=== PATIENT | male | born 1960 | race Caucasian/White ===

== ENCOUNTER 2021-08-26 08:14 | Inpatient (IN) | payer MEDICARE, MEDICAID ==
[~2021-08-26] VITALS: Ht 188 cm; Wt 61.0 kg
[~2021-08-26 08:14] MED LIST: LAMO25TA94 PO; LORA-269 PO; MIDO5TAB4 PO; NICO-687 TD; OLAN5TAB29 PO; PRED20TA PO; UMEC1DIS PO; VENL150C58 PO; ZOSYN 3.373.375 GM/5 IV
[2021-08-26] MEDS ORDERED: PRED10TA23 PO ×2 (10:44→14:55)
[2021-08-26] MEDS ORDERED: mag hydrox/Alum hydrox/simeth 30ml oral suspension PO PRN (12:20)
[2021-08-26] MEDS ORDERED: loperamide 2mg capsule PO PRN (12:20)
[2021-08-26] MEDS ORDERED: acetaminophen 325mg tablet PO PRN (12:20)
--- NOTE | 2021-08-26 14:32 | NUR ---
Admit note: [facility]150 for gravely disabled from the Ortho floor at 1300. PT is confused and disoriented . He does not know where he is, what year it is and continues to state "Lucio loves you, Lucio is beautiful." He cannot articulate where he lives or a viable plan for food, clothing and longterm. Pt has history COPD, bipolar, Schizophrenia. Addendum: 08/26/21 at 1531 by Horace Armstrong RN admission complete, but pt is very questionable historian. Responding a lot of the time with, "I think so"
[2021-08-26] MEDS ORDERED: MIDO5TAB4 PO (14:55)
[2021-08-26] MEDS ORDERED: OLAN5TAB5 PO (14:55)
[2021-08-26 15:02] VITALS: BP 96/65
[2021-08-26] MEDS ORDERED: LORazepam 1 MG tablet PO PRN ×2 (15:10)
[2021-08-26] MEDS ORDERED: LORazepam 0.5 MG tablet PO PRN (15:21)
[2021-08-26] MEDS: midodrine 5mg tablet PO SCH (16:54)
[2021-08-26] MEDS: acetaminophen 325mg tablet PO PRN (16:56)
[2021-08-26] MEDS: ipratropium/albuterol 3ml nebule IH SCH ×2 (17:20→20:20)
[2021-08-26 20:13] VITALS: BP 110/61
[2021-08-26] MEDS: ibuprofen tablet 400 MG TABLET PO PRN (20:31)
--- NOTE | 2021-08-27 00:49 | NUR ---
Nursing Progress Note: Legal hold:5150 Client on involuntary status for GD Report received from Himanshu JOSUE, with use of SBAR Why are they here: Pt admitted to [facility] on a 5150 for gravely disabled from the Ortho floor, pt is confused and disoriented . He does not know where he is, what year it is and continues to state "Lucio loves you, Lucio is beautiful." He cannot articulate where he lives or a viable plan for food, clothing and [facility]. Pt has history COPD, bipolar, Schizophrenia. Assessment What has happened this shift: Pt lying in bed at the start of the shift and remained there for the majority of the shift. Pt continues to not know what the date is, where he is, or why he is here. He will makes statements like "Lucio loves you!' You are so beautiful." He did complain of bilateral leg pain for which he had received Tylenol, but his pain remained unchanged. OCP contacted and order for Motrin 400 mg Q6 hrs for moderate pain was obtained. S/I, H/I:denies A/VH: denies Sleep:slept well through the night ADL's:independent Group attendance:N/A Were meds taken:no scheduled meds this shift Any med S/E: none noted or reported Mental Status Exam Appearance:slender man,hygiene and grooming poor Eye contact:good Behavior:pt mostly isolative in room, cooperative and pleasant with assessment Speech:normal rate, volume Mood:elevated Affect: animated Thought process:pt having issues with memory Thought Content: hyperreligious at times Cognition:impaired Insight:poor Judgment:poor PRN's used:Motrin ordered for leg pain as Tylenol ineffective
[2021-08-27] MEDS: ipratropium/albuterol 3ml nebule IH SCH ×4 (03:00→20:03)
--- NOTE | 2021-08-27 07:38 | NUR ---
Pt. c/o SOB, lung sounds auscultated and are clear bilaterally with diminished bases. Pt's oxygen saturation is 97% on RA. Respiratory paged for scheduled breathing treatment, and will continue to monitor.
[2021-08-27 07:41] VITALS: BP 134/78
[2021-08-27] MEDS: midodrine 5mg tablet PO SCH ×3 (08:45→17:28)
[2021-08-27] MEDS: OLANZapine 5mg rapidly disint. tablet PO SCH (08:45)
[2021-08-27] MEDS: prednisone 10mg tablet PO SCH (08:45)
[2021-08-27] MEDS: venlafaxine XR 75mg capsule (Q24H) PO SCH (08:45)
[2021-08-27] MEDS: lamoTRIgine 25mg tablet PO SCH (08:45)
[2021-08-27] MEDS: nicotine 21mg patch - 24 hr TD SCH (08:46)
--- NOTE | 2021-08-27 16:59 | NUR ---
Nursing Progress Note: Legal hold: 5150 Client on involuntary status for GD Report received from nurse with use of SBAR: Lashanda Gabriel RN Why are they here: Pt admitted to [facility] on a 5150 for gravely disabled from the Ortho floor, pt is confused and disoriented . He does not know where he is, what year it is and continues to state "Lucio loves you, Lucio is beautiful." He cannot articulate where he lives or a viable plan for food, clothing and penitentiary. Pt has history COPD, bipolar, Schizophrenia. Assessment What has happened this shift: Received pt. up pacing around the unit at the beginning of the shift, he was observed to be wandering into his peers rooms at intervals requiring redirection. Pt. also required direction in order to attend breakfast in the Group Room and afterwards 1:1 was completed at bedside. Pt. presents as cooperative, restless, impulsive, and appears hypomanic. Pt. is A&O X1 (to name only). When questioned regarding why he is here, pt. stated, "I"m here to be a real nice jaylin and good." Pt. reports A/HUGHES that tell him the same thing. He denies any S/I or H/I, however makes occasional delusional statements, "Lucio says not to pull strings." He presents with religiosity. Pt. reported a headache, and PRN Tylenol was administered with effectiveness. Pt. remained restless throughout the day AEB pacing, and PRN Ativan was administered with effectiveness. Pt. was observed to be impulsive at intervals and would walk up to others stating, "It's a beautiful day!" S/I, H/I: Pt. denies A/VH: Pt. reports A/HUGHES that tell him "To be real nice and good." Sleep: Sleep hours are 8.25, and pt. naps intermittently during the day ADL's: Requires some direction and encouragement Group attendance: Yes Were meds taken: Yes Any med S/E: None Mental Status Exam Appearance: Hair disheveled and wearing multiple layers of clothing Eye contact: Good Behavior: Cooperative, Restless, impulsive, and appears hypomanic Speech: Somewhat hyperverbal and high pitched Mood: Restless Affect: Animated Thought process: Disorganized Thought Content: A/HUGHES and religiosity Cognition: A&O X1 Insight: Poor Judgment: Poor Interventions PRN's used: Ativan and Tylenol Therapeutic interventions: Introduced self and established rapport, maintained a safe and supportive environment, ensured contract for safety, provided clear and simple instructions, attempted to orient to reality, clarified Ativan order, provided redirection as needed, and maintained Q 15nmin safety checks. Restraints/seclusion/emergency medication: N/A Justification of Continued Inpatient Treatment: Pt. requires interruption of current crisis, medication adjustments, and a safe and supportive environment.
[2021-08-27] MEDS: LORazepam 0.5 MG tablet PO PRN (19:11)
[2021-08-27 21:04] VITALS: BP 103/66
[2021-08-27 21:08] VITALS: BP 103/66
[2021-08-27] MEDS: ibuprofen tablet 400 MG TABLET PO PRN (23:20)
[2021-08-27] MEDS: traZODone 50mg tablet PO PRN (23:20)
--- NOTE | 2021-08-27 23:42 | NUR ---
Nursing Progress Note: Legal hold: 5150 Client on involuntary status for GD Report received from nurse with use of SBAR: Holger RN Why are they here: Pt admitted to [facility] on a 5150 for gravely disabled from the Ortho floor, pt is confused and disoriented . He does not know where he is, what year it is and continues to state "Lucio loves you, Lucio is beautiful." He cannot articulate where he lives or a viable plan for food, clothing and senior care. Pt has history COPD, bipolar, Schizophrenia. Assessment What has happened this shift: Pt lying in bed at the start of the shift. He continues to be hyperreligious, he reports hearing a voice telling him that "Lucio loves me." He was found laying in another patients bed two times this shift. The second time he did not believe that he was in the wrong room, I had to convince him to get up and return to his room. As I was escorting him back to his room he quickly grabbed me and kissed me on the neck. I told him that this was inappropriate behavior and he apologized. Pt also had an episode where he appeared to be having trouble breathing, was breathing rapidly, assessment was done by RT and lungs were clear, it appears pt was hyperventilating. Ativan was given as he appeared to be having anxiety, HR was elevated at 102. Pt was up and down after 10 pm so order for PRN Trazadone given to help him sleep and staff were watching the hallway to prevent patient from wandering into others rooms S/I, H/I: Pt. denies A/VH: Pt. reports A/HUGHES that tell him "Lucio loves me" Sleep: up and down after 10 pm so Trazadone order obtained and given ADL's: Requires some direction and encouragement Group attendance: N/A Were meds taken: Yes Any med S/E: None Mental Status Exam Appearance: Hair disheveled and wearing multiple layers of clothing Eye contact: fair, intense gaze at time Behavior: confused, wandering, anxious at time Speech: poverty of speech Mood: anxious Affect: blunted Thought process: Disorganized, confused Thought Content: A/HUGHES and religiosity Cognition: A&O X1 Insight: Poor Judgment: Poor Interventions PRN's used: Ativan, Trazadone, Motrin Therapeutic interventions: Introduced self and established rapport, maintained a safe and supportive environment, ensured contract for safety, provided clear and simple instructions, attempted to orient to reality, clarified Ativan order, provided redirection as needed, and maintained Q 15nmin safety checks. Restraints/seclusion/emergency medication: N/A Justification of Continued Inpatient Treatment: Pt. requires interruption of current crisis, medication adjustments, and a safe and supportive environment.
[2021-08-28] MEDS: traZODone 50mg tablet PO PRN ×2 (00:25→20:37)
[2021-08-28] MEDS: ipratropium/albuterol 3ml nebule IH SCH ×4 (02:13→20:08)
[2021-08-28 07:45] VITALS: BP 104/56
[2021-08-28] MEDS: midodrine 5mg tablet PO SCH ×3 (08:58→16:58)
[2021-08-28] MEDS: prednisone 10mg tablet PO SCH (08:58)
[2021-08-28] MEDS: venlafaxine XR 75mg capsule (Q24H) PO SCH (08:58)
[2021-08-28] MEDS: nicotine 21mg patch - 24 hr TD SCH (08:58)
[2021-08-28] MEDS: OLANZapine 5mg rapidly disint. tablet PO SCH (08:58)
[2021-08-28] MEDS: lamoTRIgine 25mg tablet PO SCH (08:58)
[2021-08-28] MEDS: acetaminophen 325mg tablet PO PRN (08:59)
--- NOTE | 2021-08-28 13:20 | NUR ---
Nursing Progress Note: Legal hold: 5150 Client on involuntary status for GD Report received from nurse with use of SBAR: Lashanda Gabriel RN Why are they here: Pt admitted to [facility] on a 5150 for gravely disabled from the Ortho floor, pt is confused and disoriented . He does not know where he is, what year it is and continues to state "Lucio loves you, Lucio is beautiful." He cannot articulate where he lives or a viable plan for food, clothing and [facility]. Pt has history COPD, bipolar, Schizophrenia. Assessment What has happened this shift: Received pt. sleeping in bed at the beginning of the shift, he awoke early and was observed to be sitting on the floor in the hallway. Pt. again required direction in order to attend breakfast in the Group Room and afterwards 1:1 was completed at bedside. Pt. continues to present as animated with religiosity, he states, "God is beautiful and good!" Pt. then began talking about [place] trees in a disorganized manner, but was able to be redirected back on topic. Pt. denies any depression, anxiety, or A/V/HUGHES , however appears to be internally preoccupied at times AEB observed to be whispering to himself. Pt. then begins singing, "Lucio loves me yes I know, for the Bible tells me so..." Pt. reported a headache, and PRN Tylenol was administered with effectiveness. Pt. remained up throughout the day interacting appropriately with others. He was not observed to be impulsively entering other peers rooms as was previously noted. Pt. continues to dress in multiple layers and did have another peers shirt on, but was compliant with taking this off and returning it when asked. S/I, H/I: Pt. denies A/VH: Pt. denies, however appears to be internally preoccupied at times AEB observed to be whispering to himself Sleep: Sleep hours are 6, and pt. naps intermittently during the day ADL's: Requires some direction and encouragement Group attendance: No Were meds taken: Yes Any med S/E: None Mental Status Exam Appearance: Hair disheveled and wearing multiple layers of clothing Eye contact: Good Behavior: Cooperative, Restless, impulsive, and appears hypomanic Speech: Somewhat hyperverbal and high pitched Mood: Restless Affect: Animated Thought process: Linear with disorganization Thought Content: A/HUGHES and religiosity Cognition: A&O X1 Insight: Poor Judgment: Poor Interventions PRN's used: Tylenol Therapeutic interventions: Maintained a safe and supportive environment, ensured contract for safety, provided clear and simple instructions, attempted to orient to reality, monitored behaviors and provided redirection as needed, and maintained Q 15nmin safety checks. Restraints/seclusion/emergency medication: N/A Justification of Continued Inpatient Treatment: Per Dr. Kelly, pt. continues to be GD and does not have a viable plan for discharge at this time. He continues to require a safe and supportive environment.
[2021-08-28] MEDS: LORazepam 0.5 MG tablet PO PRN (14:56)
--- NOTE | 2021-08-28 14:59 | NUR ---
Pt. wandered into another pt's room and was able to be redirected back to his own room. However, following this he became visibly anxious and and c/o SOB. PRN Ativan was administered and respiratory therapy was paged to administer pt's scheduled breathing treatment. Will continue to monitor pt. closely.
[2021-08-28 19:39] VITALS: BP 98/61
--- NOTE | 2021-08-29 01:08 | NUR ---
Nursing Progress Note: Legal hold: 5150 Client on involuntary status for GD Report received from nurse with use of SBAR: Elaine RN Why are they here: Pt admitted to [facility] on a 5150 for gravely disabled from the Ortho floor, pt is confused and disoriented . He does not know where he is, what year it is and continues to state "Lucio loves you, Lucio is beautiful." He cannot articulate where he lives or a viable plan for food, clothing and nursing home. Pt has history COPD, bipolar, Schizophrenia. Assessment What has happened this shift: Pt up on unit at start of shift. He watches TV, came to group room for snack, paces at times. Denies all MH symptoms. Pt is oriented to person only, unable to state where he is at. He did not wander into anyone else's room this shift. Pleasant and cooperative, smiles a lot verbalizes gratitude for care. S/I, H/I: Pt. denies A/VH: Pt. denies, no s/s of internally preoccupied. Sleep: asleep at this time, pt. naps intermittently during the day ADL's: Requires some direction and encouragement Group attendance: No Were meds taken: Yes Any med S/E: None Mental Status Exam Appearance: Hair disheveled Eye contact: Good Behavior: Cooperative, Speech: Soft spoken Mood: Restless Affect: Animated Thought process: confused Thought Content: getting needs met Cognition: A&O X1 Insight: Poor Judgment: Poor Interventions PRN's used: none Therapeutic interventions: Maintained a safe and supportive environment, ensured contract for safety, provided clear and simple instructions, attempted to orient to reality, monitored behaviors and provided redirection as needed, and maintained Q 15nmin safety checks. Restraints/seclusion/emergency medication: N/A Justification of Continued Inpatient Treatment: Per Dr. Kelly, pt. continues to be GD and does not have a viable plan for discharge at this time. He continues to require a safe and supportive environment.
[2021-08-29] MEDS: ipratropium/albuterol 3ml nebule IH SCH ×4 (02:41→20:28)
[2021-08-29 07:56] VITALS: BP 99/69
[2021-08-29] MEDS: lamoTRIgine 25mg tablet PO SCH (08:01)
[2021-08-29] MEDS: venlafaxine XR 75mg capsule (Q24H) PO SCH (08:01)
[2021-08-29] MEDS: prednisone 10mg tablet PO SCH (08:02)
[2021-08-29] MEDS: OLANZapine 5mg rapidly disint. tablet PO SCH (08:02)
[2021-08-29] MEDS: nicotine 21mg patch - 24 hr TD SCH (08:02)
[2021-08-29] MEDS: midodrine 5mg tablet PO SCH ×3 (08:02→15:35)
--- NOTE | 2021-08-29 09:32 | NUR ---
Pt. attended group today. Today's group was about the different communications styles i.e passive, aggressive and assertive. We discussed what the characteristics of each style was. We then discussed where they saw themselves at now and where they would like to be with their communication style. Pt engaged in group minimally. He sat and listened but was not able to share much insight into his own communication style. His thought content contained delusional content and his thought process was circumstantial. His demeanor was calm, compliant and pleasant. His mood was anxious with a restricted affect. He came in and out of the group, when he was in the group he would just listen. Nathaly Wiseman, LEAD MAN [employer]
[2021-08-29] MEDS: acetaminophen 325mg tablet PO PRN ×3 (09:34→22:10)
--- NOTE | 2021-08-29 17:53 | NUR ---
Nursing Progress Note: Legal hold: 5150 Client on involuntary status for GD Report received from LIAT Zamudio with use of SBAR Why are they here: Pt admitted to [facility] on a 5150 for gravely disabled from the Ortho floor, patient is confused and disoriented. He does not know where he is, what year it is and continues to state "Lucio loves you, Lucio is beautiful." He cannot articulate where he lives or a viable plan for food, clothing and detention. Pt has history COPD, bipolar, Schizophrenia. Assessment What has happened this shift: Received patient and entered his room at 0630. Patient laying quietly in his bed with very open wide eyes, and did not speak after introducing myself. Patient appears slightly anxious and possibly afraid. Patient was assisted to sit up on the side of the bed for his Patient Assessment and 1:1 Patient Interview. Patient speaks very softly and slowly. During the patient interview, he is confused and reports he is at [place], the year is 1968 and he does not know the month, and his /age. Patient reports he lives alone and states I dont know where to walk to and get my groceries. Patient was asked if he had someone to help him with his laundry and purchasing groceries, and he replied No, I dont know anybody. Between asking the patient questions, he would respond Lucio loves you. Lucio loves me. Dariel, God is good. and would continue repeating the above statements over and over. Patient was assisted from his bed to the Community Room for breakfast. Patient was very unsteady on his feet, but as he ambulated his gait improved. Patient informed God brought me here. Patient laid down in his bed after breakfast, laying in the dark. Patient reported My back hurts very bad. When asked to report his pain on a scale of 1-10, he reports he has Really bad pain down the back of both of my legs Patient was informed that he could go back to the Dining Room and color pictures, or attend Group Meeting at 1100, after snack. At approximately 1050, the patient was reminded of snack, and assisted with ambulation from his bed to the Community Room to pool hall inspector line for snack. Patient appeared calm after he was out of the room and listening to the Group Meeting in the back of the room. The patient did not participate. Patient continued throughout the day sitting in the dining room with his eyes wide open and appearing frightful and extremely apprehensive, and does not initiate getting up from the chair or his bed on his own. S/I, H/I: Denies A/VH: Denies Sleep: 8.25 hours ADL's: Patient requires full on prompting and direction to move anywhere from out of his bed for meals, snacks or the bathroom. Group attendance: Patient sat in the back of the Community Room and did not participate, but listened. Were meds taken: Yes, without hesitation. Any med S/E: None observed or reported. Mental Status Exam Appearance: Tall, extremely thin male with black/dye messy hair with a rubber band in the back of his head, dressed in a black shirt and jeans. Eye contact: Good Behavior: Cooperative Speech: Slowly and Softly Mood: Flat Affect: Constricted, Fixed Expression Thought process: Disorganized. Thought Content: Thought Blocking Prevents conversation other than a yes/no answer from the patient. Cognition: Confused. Year 1968. Does not know /age, Month, Time Insight: Poor Judgment: Poor Interventions PRN's used: Tylenol x2 Therapeutic interventions: Maintained a safe and supportive environment, ensured contract for safety, provided clear and simple instructions, attempted to orient to reality, monitored behaviors and provided redirection as needed, and maintained Q 15nmin safety checks. Restraints/seclusion/emergency medication: N/A Justification of Continued Inpatient Treatment: Per Dr. Kelly, pt. continues to be GD and does not have a viable plan for discharge at this time. He continues to require a safe and supportive environment.
--- NOTE | 2021-08-29 18:15 | NUR ---
Called to patient's room as pt had vomited and c/o rapid breathing. Vital signs HR 96, 97% on room air, BP 111/76. Patient informed to slow down and used purse lipped breathing. Patient was able to slow down his breathing after approximately 5 minutes. Patient received an Ativan at 1820, and was resting on his bed. Patient calming down at this time. Vital signs repeated. P.O. 98% on room air. BP 110/80 and HR 80. Patient reports he is feeling better. Respirations down from 38 to 18. Stayed with patient until 1840. Patient eating dinner at this time. Resting on his bed. Stable at this time. Report given to [facility] shift nurse Abdoul.
--- NOTE | 2021-08-29 18:17 | NUR ---
Pt vomited and has labored breathing. Paged respiratory
[2021-08-29] MEDS: LORazepam 0.5 MG tablet PO PRN ×2 (18:26→22:55)
--- NOTE | 2021-08-29 18:30 | NUR ---
Second page sent to respiratory therapy for breathing treatment. PRN Ativan administered. RN at the bedside
[2021-08-29 20:03] VITALS: BP 116/73
[2021-08-29] MEDS ORDERED: ondansetron 4mg rapidly disintigrating tab PO PRN (22:15)
--- NOTE | 2021-08-29 22:17 | NUR ---
Pt has had another episode of vomiting this shift, he is complaining of pain to lower abdominal area, when asked when his last bowel movement was he stated "I don't poop." Bowel sounds are hypoactive in all 4 quadrants. Ordered obtained for zofran and KUB to r/o bowel obstruction.
[2021-08-29] MEDS: traZODone 50mg tablet PO PRN (22:55)
--- NOTE | 2021-08-30 02:01 | NUR ---
Nursing Progress Note: Legal hold: 5150 Client on involuntary status for GD Report received from LIAT Drew with use of SBAR: Why are they here: Pt admitted to [facility] on a 5150 for gravely disabled from the Ortho floor, pt is confused and disoriented . He does not know where he is, what year it is and continues to state "Lucio loves you, Lucio is beautiful." He cannot articulate where he lives or a viable plan for food, clothing and [facility]. Pt has history COPD, bipolar, Schizophrenia. Assessment What has happened this shift: Patient seen at bedside. He is lying there with his hands behind his head. Patient did not want to get up tonight. He can't tell me anything about how he lives outside of here. He doesn't know where to go when discharged. Patient is cooperative and polite. Patient refused dinner tonight. He ended up getting more nausea with vomiting. He had not eaten dinner, so his vomit should have been Bile, but it had chunks of food in it. Bowel sounds almost absent. Received order for Zofran and KUB. Zofran was effective AEB no more vomiting. S/I, H/I: Denies A/VH: Denies, none observed. Sleep: See sleep assessment ADL's: Requires some direction and encouragement Group attendance: No Were meds taken: Yes Any med S/E: None Mental Status Exam Appearance: Hair disheveled, very thin man. Eye contact: Good Behavior: Cooperative, Speech: Soft spoken Mood: Restless Affect: Animated Thought process: confused Thought Content: getting needs met Cognition: A&O X1 Insight: Poor Judgment: Poor Interventions PRN's used: Zofran, Tylenol Therapeutic interventions: Maintained a safe and supportive environment, ensured contract for safety, provided clear and simple instructions, attempted to orient to reality, monitored behaviors and provided redirection as needed, and maintained Q 15nmin safety checks. Restraints/seclusion/emergency medication: N/A Justification of Continued Inpatient Treatment: Per Dr. Kelly, pt. continues to be GD and does not have a viable plan for discharge at this time. He continues to require a safe and supportive environment.
--- NOTE | 2021-08-30 07:16 | NUR ---
Initial: Pt admitted w/ schizophrenia per EMR. Previously, about 3 weeks ago, pt was seen by RD and met minimum criteria for malnutrition given muscle/fat wasting. However, pt was also on EN for a period of time and was eating moderately well after advancing to PO diet.Currently, Pt is eating avg 80% of meals and participates in some snacks per documentation. Overall, pt has been meeting est nutrient needs since last admit. LBM 08/29. No nutrition intervention implemented at this time, will continue to monitor. Recs: 1. Continue Regular diet as tolerated 2. Bowel care PRN 3. Weekly wts Addendum: 08/30/21 at [address] Amended: Links added.
[2021-08-30] MEDS: magnesium hydroxide 30ml (MOM) UD suspension PO PRN (07:51)
[2021-08-30] MEDS: venlafaxine XR 75mg capsule (Q24H) PO SCH (07:51)
[2021-08-30] MEDS: OLANZapine 5mg rapidly disint. tablet PO SCH (07:51)
[2021-08-30] MEDS: midodrine 5mg tablet PO SCH ×3 (07:51→17:41)
[2021-08-30] MEDS: prednisone 10mg tablet PO SCH (07:51)
[2021-08-30] MEDS: lamoTRIgine 25mg tablet PO SCH (07:51)
[2021-08-30] MEDS: nicotine 21mg patch - 24 hr TD SCH (07:52)
--- NOTE | 2021-08-30 07:53 | NUR ---
- Needs Assessment Presenting Issues: Pt's on vol status, question re d/c destination. Interventions: Clinician met w/pt @ bedside in an attempt to engage pt in pre-dcp activities and assess his needs outside of the hospital. Pt was not able to participate fully in this activity and was only able to nod his head when asked if he lives in an apartment. MSE is as follows: A/O- unable to assess as pt did not answer TP- unable to assess as pt only answered 1 question (close ended, explicit- "do you live in an apartment?") TC- unable to assess Mood- anxious, scared Affect- frozen stare BXS- cooperative- allows others to do things for & to him Insight- unable to assess Judgement- unable to assess Pt was non verbal for most of our session, he only nodded to 1 question and spent the entire session curled up staring @ clinician w/o any movements/gestures/sounds. Clinician consulted w/pt's assigned RN to gather info re pt's response to care. Per consultation pt is cooperative w/caregiving as he does not complain or resist care but he also does not participate in the daily care plan and just allows things to be done for/to him. A review of pt's records in [facility] indicates that hospital in had t/c with pt's landlord and documented that pt can rt home when he is d/c and landlord also reported that pt feels that he (pt) can no longer care for himself, current opened APS referral, connected to [facility] for PMD services & [facility] for psychiatric care. Pt receives SSDI, has Medicare A& B & Medi[employer] and has no payee/any identified POA. Dispo: It appears that pt requires additional support in the home (i.e a live-in or / caregiving support) so he can safely live where he's currently living. Plan: Clinician will f/u with APS and engage them in dcp/placement activities. Talita Sanchez LCSW Addendum: 08/30/21 at 0826 by Talita SOLIS Amended: Links added.
[2021-08-30 08:33] VITALS: BP 98/58
--- NOTE | 2021-08-30 09:00 | NUR ---
CM Presenting Issues: Pt's on Vol status, needs dcp support and dispo re d/c destination. Intervention: Clinician attempted to contact pt's landlord via phone, unable to leave as phone mssg indicated that he was not accepting phone calls at this time. Clinician had t/c w/[facility] per t/c pt is currently not open to [facility] and that pt can sign his application w/an 'X'. Plan: Clinician will continue to try and contact landlord, and provide referral for [facility] services. Talita Sanchez LCSW Addendum: 08/30/21 at 0908 by Talita Sanchez Amended: Links added.
[2021-08-30] MEDS: LORazepam 0.5 MG tablet PO PRN ×2 (09:01→20:57)
[2021-08-30] MEDS: ibuprofen tablet 400 MG TABLET PO PRN (09:03)
--- NOTE | 2021-08-30 09:41 | NUR ---
CM-Linkages Presenting Issues: Pt's on vol status needs dcp support as pt requires third green party assistance to safely live independently. Interventions: Clinician had t/c with [employer] and inquired about NMT (non-medical transportation services eligibility) as pt also has [employer]. Per t/c pt is eligible for NMT services for f/u appointments. Plan: Clinician will assist pt in scheduling his ride for post hospital f/u prior to d/c. Talita Sanchez LCSW Addendum: 08/30/21 at 0945 by Talita SOLIS Amended: Links added.
--- NOTE | 2021-08-30 13:32 | NUR ---
CM-Linkages Presenting Issues: Pt presents as frail and lacking insights into his current situation. Attending physician request support to facilitate pt's access to additional community-base support & services to mitigate risks of re-admission when pt d/c. Interventions: Clinician met w/pt and provided info about [facility] & [facility] [facility], pt signed consents for these referrals and [facility] applications for both of these services. Clinician asked pt if he is worried about himself if he were to return home, pt nodded, but when asked to elaborate pt was unable to do so. Referrals for [facility] & [facility] [facility] were faxed to the appropriate agencies. Plan: Per attending physician, pt needs to be seen by [facility] as oppose to [facility] given pt's acuity. Pt to d/c from [facility] to be transported to [facility] to establish outpatient services. Talita Sanchez LCSW Addendum: 08/30/21 at 1344 by Talita Sanchez SS Amended: Links added.
--- NOTE | 2021-08-30 13:53 | NUR ---
DCP Presenting Issues: Pt's on Vol status needs dcp support. Interventions: Clinician attempted to contact pt's landlord via phone to facilitate pt's d/c home, landlord's phone was not receiving any calls at this time. Plan: clinician will keep trying to reach landlord, will coordinate d/c w/[facility] & APS. Talita Sanchez LCSW Addendum: 08/30/21 at 1405 by Talita Sanchez SS Amended: Links added.
--- NOTE | 2021-08-30 19:06 | NUR ---
Nursing Progress Note: Legal hold: 5150 Client on involuntary status for GD Report received from [facility] with use of SBAR Why are they here: Pt admitted to [place] for Behavioral health on a 5150 for gravely disabled from the Ortho floor, patient is confused and disoriented. He does not know where he is, what year it is and continues to state "Lucio loves you, Lucio is beautiful." He cannot articulate where he lives or a viable plan for food, clothing and penitentiary. Pt has history COPD, bipolar, Schizophrenia. Assessment What has happened this shift: Received patient while he was sleeping in his bed. Patient easily aroused. Asked patient if he could sit up and put his legs over the side of his bed to take his medications then go to breakfast in the Community Room. Patient continued to lie on his back in the bed without moving. Asked patient if he heard what I had asked him to do, and he stated yes. Patient continued to lie on the bed. Again repeated the same task two more times with no results. Attempted to sit the patient upright and with his legs over the side of the bed, and there was a large amount of vomit covering his entire scrub shirt, all of his pillows and bedding were saturated in vomit. Asked patient when he had last vomited, and the patient stated I dont know, I think it was during the night. Patient also had a pair of black jeans that he had worn to bed. The pants and lower part of the bedding was saturated in urine. Patient urinated on the bed/floor when he was sat up alongside bed. Patient reports its 1981. Does not answer questions regarding his own name, , month, and location. Patient has a very flat affect, wide open eyes that does not track what is going on around him, and around the entire room. Patient stares straight ahead and is non-verbal most of the time, and when spoken to, does not respond to others or answer any questions. Patient was asked to get his food ready to eat by putting salt/pepper on the eggs and put syrup on his Khmer toast. Patient sat there for approximately 10 minutes in the Dining Room for breakfast this morning, and despite prompting on all of these tasks that were required of him to also do at home, patient did not do any of them. Patient just stared ahead. Spoke with Holger and asked him to add that patient needs tray set up for all meals and prompting to eat. Patients verbalization that was in response to any questions he was asked was God is good. Sure Sweetheart. Thank You. Patients condition was changed to a Voluntary Status, which I spoke with Mary about, and she said she would check into it. Informed Mary that at a very minimum, I had spoke to Dr. Kelly and told him that the patient should be looked at the be conserved, and not to return back to home because the level of care that he requires is care in a Retirement Facility at this time. Mary informed I will look at it. Also spoke directly to Talita and informed of lack of initiation, lack of initiative, and patient must be prompted for every single task in caring for himself such as toileting, eating, communication, ambulation, safety and personal care. Patient received an Ativan this morning with good relief. Patient will verbally speak to himself making reference to God and is delusional. Patient requires 1:1 care to complete all tasks, as well as 1:1 for safety at all times. S/I, H/I: Denies A/VH: Denies Sleep: 5.75 hours ADL's: Patient requires full on prompting and direction to move anywhere from out of his bed for meals, snacks or the bathroom. Group attendance: Patient did not attend the Group Meeting, instead laid down on his bed. Were meds taken: Yes, without hesitation. Any med S/E: None observed or reported. Mental Status Exam Appearance: Tall, extremely thin male with black/dye messy hair with a rubber band in the back of his head, dressed in a black shirt and jeans. Eye contact: Patient stares widely with open eyes, does not make eye contact when spoken to, and does not track his or others movement while in a room of peers. Behavior: Cooperative Speech: Slowly and Softly Mood: Flat Affect: Constricted, Fixed Expression Thought process: Delusional. Thought Content: Not able to evaluate. Cognition: Confused. Year 1980. Does not know his /AGE, Month, Time Insight: Poor Judgment: Poor Interventions PRN's used: Ativan x1, Motrin x1 Therapeutic interventions: Maintained a safe and supportive environment, ensured contract for safety, provided clear and simple instructions, attempted to orient to reality, monitored behaviors and provided redirection as needed, and maintained Q 15nmin safety checks. Restraints/seclusion/emergency medication: N/A Justification of Continued Inpatient Treatment: Per Dr. Kelly, pt. continues to be GD and does not have a viable plan for discharge at this time. He continues to require a safe and supportive environment.
[2021-08-30 20:23] VITALS: BP 98/61
[2021-08-30] MEDS: traZODone 50mg tablet PO PRN (20:57)
--- NOTE | 2021-08-31 01:09 | NUR ---
Nursing Progress Note: Legal hold: 5150 Client on involuntary status for GD Report received from [facility] with use of SBAR: Why are they here: Pt admitted to [place] for Behavioral health on a 5150 for gravely disabled from the Ortho floor, pt is confused and disoriented . He does not know where he is, what year it is and continues to state "Lucio loves you, Lucio is beautiful." He cannot articulate where he lives or a viable plan for food, clothing and residential. Pt has history COPD, bipolar, Schizophrenia. Assessment What has happened this shift: Patient seen in the group room. He has his dinner tray in front of him. most of his bread stick was eaten, but nothing else. Asked if he needed help...stares at me. Asked if he was still feeling sick today...more stare..."I'm scared." Assured him he was safe here, and nobody would harm him. More staring, now straight ahead, then starts talking to himself. Asked if there was anything I could do for him, "no sir." Patient made it back to his room, but just lay there for a while with eyes wide open. Provided him Ativan and Trazodone so he would sleep, "thank you good sir, thank you." Patient seems to need assist with every aspect of his life. Hope D/C plan addresses that. S/I, H/I: Denies A/VH: +AH, patient is very fearful and talks to himself. Sleep: See sleep assessment ADL's: Requires direction and encouragement Group attendance: No Were meds taken: Yes Any med S/E: None Mental Status Exam Appearance: Hair disheveled, very thin man. Eye contact: Good Behavior: Cooperative, comfused, scared, fearful Speech: Soft spoken Mood: Restless Affect: Afraid Thought process: confused Thought Content: getting needs met Cognition: A&O X1 Insight: Poor Judgment: Poor Interventions PRN's used: Ativan, Tylenol Therapeutic interventions: Maintained a safe and supportive environment, ensured contract for safety, provided clear and simple instructions, attempted to orient to reality, monitored behaviors and provided redirection as needed, and maintained Q 15nmin safety checks. Restraints/seclusion/emergency medication: N/A Justification of Continued Inpatient Treatment: Per Dr. Kelly, pt. continues to be GD and does not have a viable plan for discharge at this time. He continues to require a safe and supportive environment.
[2021-08-31 07:10] VITALS: BP 90/58
[2021-08-31 07:33] LABS: BASOPHILS % (AUTO) 0.6 % (0-1); EOSINOPHILS % (AUTO) 0.1 % (0-6); HEMATOCRIT 39.1 % (42.0-52.0); HEMOGLOBIN 12.7 g/dl (14.0-17.9); LYMPHOCYTES # (AUTO) 1.6 X10'3 (1.1-4.8); LYMPHOCYTES % (AUTO) 20.6 % (21-51); MEAN CORPUSCULAR HGB CONC 32.5 g/dL (33.0-36.5); MEAN CORPUSCULAR VOLUME 95.5 FL (78-98); MEAN PLATELET VOLUME 7.9 FL (7.4-10.4); MONOCYTES % (AUTO) 12.1 % (2-12); NEUTROPHILS # (AUTO) 5.2 X10'3 (1.8-7.7); NEUTROPHILS % (AUTO) 66.6 % (42-75); PLATELET COUNT 418 X10'3 (140-440); RED BLOOD COUNT 4.09 X10'6 (4.70-6.10); RED CELL DISTRIBUTION WIDTH 14.2 % (11.5-14.5); WHITE BLOOD COUNT 7.9 X10'3 (4.5-11.0)
[2021-08-31] MEDS: prednisone 10mg tablet PO SCH (07:43)
[2021-08-31] MEDS: midodrine 5mg tablet PO SCH ×3 (07:43→16:06)
[2021-08-31] MEDS: nicotine 21mg patch - 24 hr TD SCH (07:43)
[2021-08-31] MEDS: OLANZapine 5mg rapidly disint. tablet PO SCH (07:43)
[2021-08-31] MEDS: venlafaxine XR 75mg capsule (Q24H) PO SCH (07:43)
[2021-08-31] MEDS: lamoTRIgine 25mg tablet PO SCH (07:43)
[2021-08-31 07:53] LABS: ALANINE AMINOTRANSFERASE 47 U/L (12-78); ALBUMIN 3.3 G/DL (3.4-5.0); ALKALINE PHOSPHATASE 64 IU/L (46-116); ANION GAP 7 (8-16); ASPARTATE AMINO TRANSFERASE 19 U/L (10-37); BILIRUBIN,TOTAL 0.4 MG/DL (0.1-1.0); BLOOD UREA NITROGEN 23 MG/DL (7-18); BUN/CREATININE RATIO 29.9 (5.4-32.0); CALCIUM 8.6 MG/DL (8.5-10.1); CHLORIDE 106 MMOL/L (99-107); CREATININE 0.77 MG/DL (0.60-1.10); GLUCOSE 95 MG/DL (70-104); POTASSIUM 3.8 MMOL/L (3.5-5.1); SODIUM 144 MMOL/L (135-145); TOTAL CARBON DIOXIDE 30.7 MMOL/L (24-32); TOTAL PROTEIN 6.5 G/DL (6.4-8.2); eGFR > 90 ML/MIN
[2021-08-31 09:01] LABS: HIV ANTIBODY 1&2 RAPID NON-REACTIVE (Neg)
[2021-08-31] MEDS: LORazepam 0.5 MG tablet PO PRN ×2 (09:12→16:06)
[2021-08-31] MEDS: ibuprofen tablet 400 MG TABLET PO PRN ×2 (11:37→20:01)
--- NOTE | 2021-08-31 13:30 | NUR ---
Page sent to RT... [id number] Clif Catherine: patient needs PRN breathing treatment paula. thanks!
--- NOTE | 2021-08-31 14:58 | NUR ---
Nursing Progress Note: Legal hold: 5150 Client on involuntary status for GD Report received from [facility] Sin with use of SBAR: Why are they here: Pt admitted to [place] for Behavioral health on a 5150 for gravely disabled from the Ortho floor, pt is confused and disoriented . He does not know where he is, what year it is and continues to state "Lucio loves you, Lucio is beautiful." He cannot articulate where he lives or a viable plan for food, clothing and care home. Pt has history COPD, bipolar, Schizophrenia. Assessment What has happened this shift: Patient in room awake this AM. Repeating himself frequently. Patient was compliant with medications. Although the whole time he has a blank stare. Patient resting a couple times throughout the day but mostly staring blankly and repeating different phrases. Patient was up walking around 1330 and developed some shortness of breath with audible wheezes, RT paged and patient escorted back to room. O2 saturation 99% on RA. S/I, H/I: Denies A/VH: +AH, patient repeatedly chanting "voices" throughout the day. Sleep: See sleep assessment ADL's: Requires direction and encouragement Group attendance: No Were meds taken: Yes Any med S/E: None Mental Status Exam Appearance: Hair disheveled, very thin man. Eye contact: Good Behavior: Cooperative, confused, scared, fearful Speech: Soft spoken Mood: Restless Affect: Afraid Thought process: confused Thought Content: getting needs met Cognition: A&O X1 Insight: Poor Judgment: Poor Interventions PRN's used: Ativan, Motrin Therapeutic interventions: Maintained a safe and supportive environment, ensured contract for safety, provided clear and simple instructions, attempted to orient to reality, monitored behaviors and provided redirection as needed, and maintained Q 15nmin safety checks. Restraints/seclusion/emergency medication: N/A Justification of Continued Inpatient Treatment: Per Dr. Kelly, pt. continues to be GD and does not have a viable plan for discharge at this time. He continues to require a safe and supportive environment.
[2021-08-31 16:00] VITALS: BP 122/81
--- NOTE | 2021-08-31 18:33 | NUR ---
At start of shift [facility] notified me that Altaf was in the dining room yelling and cussing, and he was not redirectable. I approached him and tried to assess what was bothering him, he was sitting at the table staring at his tray, I asked him if he was done eating or still working on it, he stated "yes dear", when I tried to clarify which he meant and he just stated the same thing. I asked if we could go to his room and talk and he stated "yes dear", then walked with me and then stated "no talking, no talking!" I directed him to his room which he did, and I asked him what was bothering him, he stated "Fantasy fantasy!!" He is clearly agitated and appears to be responding to internal stimuli. Spoke with Dr Lashae SAHU and obtained order for Zyprexa 5mg now and Ativan now x1 and given ordered dose of Zyprexa 15 mg at bedtime. Notified pts nurse Dahlia.
[2021-08-31] MEDS ORDERED: LORazepam 1 MG tablet PO ONE (18:35)
[2021-08-31] MEDS ORDERED: OLANZapine 5mg rapidly disint. tablet PO ONE (18:35)
[2021-08-31] MEDS: traZODone 50mg tablet PO PRN ×2 (20:01→21:10)
[2021-08-31] MEDS: OLANZAPINE 5 MG TABLET PO SCH (20:01)
[2021-08-31 20:40] VITALS: BP 107/70
--- NOTE | 2021-08-31 23:39 | NUR ---
Nursing Progress Note Voluntary status Why are they here: Pt admitted to [place] for Behavioral health on a 5150 for gravely disabled from the Ortho floor, pt is confused and disoriented . He does not know where he is, what year it is and continues to state "Lucio loves you, Lucio is beautiful." He cannot articulate where he lives or a viable plan for food, clothing and longterm. Pt has history COPD, bipolar, Schizophrenia. What happened this shift: Pt is observed in the community room loudly cursing and yelling at no one in particular. Pt approached by staff and not making coherent sentences. PT brought to his room with his food tray to try to calm him down. called, 1 mg Ativan and 5 mg Zyprexa ordered and given. Pt kept repeating Donora, Donora, Donora, voices, voices. Pt took medication with some prompting. Pt given PRN trazodone x2 and PRN motrin for leg pain. PT has a flat, fixed affect with wide open eyes. His speech is clear, but he is repetitive and unable to respond to most questions. He takes medications well with applesauce, as he has trouble holding the med cup in his hands and focusing on trying to take them. Pt helped into bed and he is able to fall asleep. Justification of Continued Inpatient Treatment: Per Dr. Kelly, pt. continues to be GD and does not have a viable plan for discharge at this time. He continues to require a safe and supportive environment.
[2021-09-01 07:00] VITALS: BP 112/72
[2021-09-01 07:27] VITALS: BP 112/72
[2021-09-01] MEDS: nicotine 21mg patch - 24 hr TD SCH (08:08)
[2021-09-01] MEDS: midodrine 5mg tablet PO SCH ×3 (08:08→16:16)
[2021-09-01] MEDS: venlafaxine XR 75mg capsule (Q24H) PO SCH (08:08)
[2021-09-01] MEDS: lamoTRIgine 25mg tablet PO SCH (08:08)
[2021-09-01] MEDS: prednisone 10mg tablet PO SCH (08:08)
[2021-09-01] MEDS: LORazepam 0.5 MG tablet PO PRN ×2 (12:28→20:27)
--- NOTE | 2021-09-01 14:49 | NUR ---
Nursing Progress Note: Legal hold: 5150 Client on involuntary status for GD Report received from [facility] with use of SBAR: Why are they here: Pt admitted to [place] for Behavioral health on a 5150 for gravely disabled from the Ortho floor, pt is confused and disoriented . He does not know where he is, what year it is and continues to state "Lucio loves you, Lucio is beautiful." He cannot articulate where he lives or a viable plan for food, clothing and [facility] [facility]. Pt has history COPD, bipolar, Schizophrenia. Assessment Patient was sleeping comfortably a the beginning of this shift. When he woke for breakfast he was escorted to dining area where he was repeating different phrases and blankly staring. He was compliant with medications. Before lunch, patient urinated on himself. He was found removing his clothing in his room. Techs assisted him with cleaning up and put his clothes in the washer. Patient at lunch with no issues. S/I, H/I: Denies A/VH: +AH Sleep: See sleep assessment ADL's: Requires direction and encouragement Group attendance: Yes Were meds taken: Yes Any med S/E: None Mental Status Exam Appearance: Hair disheveled, very thin man. Eye contact: Good Behavior: Cooperative, confused, scared, fearful Speech: Soft spoken Mood: Restless Affect: Afraid Thought process: confused Thought Content: getting needs met Cognition: A&O X1 Insight: Poor Judgment: Poor Interventions PRN's used: Ativan Therapeutic interventions: Maintained a safe and supportive environment, ensured contract for safety, provided clear and simple instructions, attempted to orient to reality, monitored behaviors and provided redirection as needed, and maintained Q 15nmin safety checks. Restraints/seclusion/emergency medication: N/A Justification of Continued Inpatient Treatment: Per Dr. Kelly, pt. continues to be GD and does not have a viable plan for discharge at this time. He continues to require a safe and supportive environment.
[2021-09-01 15:27] LABS: HEP A AB, IGM Positive (Negative); HEPATITIS C ANTIBODY 0.1 s/co ratio (0.0-0.9)
--- NOTE | 2021-09-01 19:16 | NUR ---
INFECTION CONTROL NOTE advised staff about Hepatitis A precautions for Altaf. Contact isolation precautions, must wash hands thoroughly before leaving his room and interacting with the communal environment. Pt will need supervision and prompting to properly wash hands.
[2021-09-01 20:00] VITALS: BP 103/70
[2021-09-01] MEDS: OLANZAPINE 5 MG TABLET PO SCH (20:26)
[2021-09-01] MEDS: traZODone 50mg tablet PO PRN ×2 (20:27→21:23)
[2021-09-01] MEDS: ibuprofen tablet 400 MG TABLET PO PRN (20:33)
--- NOTE | 2021-09-01 22:52 | NUR ---
Nursing Progress Note Voluntary status Why are they here: Pt admitted to [place] for Behavioral health on a 5150 for gravely disabled from the Ortho floor, pt is confused and disoriented . He does not know where he is, what year it is and continues to state "Lucio loves you, Lucio is beautiful." He cannot articulate where he lives or a viable plan for food, clothing and penitentiary. Pt has history COPD, bipolar, Schizophrenia. What happened this shift: Pt is on contact precaution for Hep A. Pt's room wiped down with bleach wipes at beginning of shift. Pt stays in his room the entirety of the shift and eats his dinner at shift change. 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 He is pleasant with staff, calling them "sweetie" "beautiful" and being very thankful. Staff helps him change into clean scrubs and orellana and bull his hair. This seems to make him happy. Pt is medication compliant and utilizes prn motrin for "leg pain" and prn trazodone x2 for sleep with good effect. Justification of Continued Inpatient Treatment: Per Dr. Kelly, pt. continues to be GD and does not have a viable plan for discharge at this time. He continues to require a safe and supportive environment.
[2021-09-02 07:28] VITALS: BP 96/63
[2021-09-02] MEDS: lactose-reduced food (Ensure Enlive) - 237ml bottle PO SCH ×3 (08:12→18:04)
[2021-09-02] MEDS: lamoTRIgine 25mg tablet PO SCH (08:17)
[2021-09-02] MEDS: nicotine 21mg patch - 24 hr TD SCH (08:17)
[2021-09-02] MEDS: LORazepam 0.5 MG tablet PO PRN ×2 (08:17→17:22)
[2021-09-02] MEDS: prednisone 10mg tablet PO SCH (08:17)
[2021-09-02] MEDS: midodrine 5mg tablet PO SCH ×3 (08:17→16:00)
[2021-09-02] MEDS: venlafaxine XR 75mg capsule (Q24H) PO SCH (08:17)
--- NOTE | 2021-09-02 09:33 | NUR ---
Pt. observed to yelling aloud in his room responding to internal stimuli. Pt. yelled out, "F... you," and then "I'm sorry, I'm sorry!" He was administered PRN 0.5mg Ativan approximately an hour earlier for anxiety without desired effect. Dr. Bhardwaj notified via telephone and obtained order for Zyprexa 10mg daily, start now. Will continue to monitor closely.
[2021-09-02] MEDS: ibuprofen tablet 400 MG TABLET PO PRN (09:40)
[2021-09-02] MEDS: olanzapine 10mg tablet PO SCH (09:40)
--- NOTE | 2021-09-02 09:59 | NUR ---
HEPATITIS A: Per Dr. Doan, Hepatitis A is transferred by the fecal oral route. Pt. should be encouraged to preform frequent handwashing, should not share food or drinks, should have his own bathroom, and if having diarrhea requiring assistance from staff (staff to use Contact Precautions).
[2021-09-02] MEDS: ipratropium/albuterol 3ml nebule NEB PRN ×2 (10:33→19:42)
--- NOTE | 2021-09-02 10:44 | NUR ---
RT called to bedside to prn breathing tx. Upon RT arrival, pt is laying on his back in bed yelling random sentences, one of which earlier was "I can't breathe". Upon assessment, pt breath sounds are clear, apo2 is 94% on room air. Attempted to get pt to sit up and answer questions regarding taking the breathing tx and sob, however he is confused and does not answer questions appropriately. Attempted to give pt a tx via blow by, but pt kept turning his head. Tx stopped. No perceived sob. Will cont to monitor Addendum: 09/02/21 at 1047 by Carlota Hutson RT Amended: Links added.
[2021-09-02] MEDS ORDERED: LORazepam 1 MG tablet PO ONE ×2 (11:00→12:35)
--- NOTE | 2021-09-02 11:01 | NUR ---
Pt. continues to yell out responding to internal stimuli in an anxious manner. He yells, "Help, help," then continues on in a tangental and non-sensical manner. This was endorsed to Dr. Bhardwaj via telephone and obtained orders for Ativan 1mg now MRXI in 30 minutes if ineffective. Will continue to monitor.
--- NOTE | 2021-09-02 12:33 | NUR ---
Pt. continues to exhibit anxiety AEB observed to be responding aloud to internal stimuli while laying in bed in his room. Pt. shakes his bilateral legs restlessly while laying in bed, he states, "Shut up, shut up, shut up!" MRX1 dose of 1mg of Ativan to be administered per Dr. Bhardwaj.
--- NOTE | 2021-09-02 17:23 | NUR ---
Nursing Progress Note: Legal hold: Voluntary Client on voluntary status for GD Report received from nurse with use of SBAR: Lashanda Gabriel RN Why are they here: Pt admitted to [facility] for [facility] on a 5150 for gravely disabled from the Ortho floor, pt is confused and disoriented . He does not know where he is, what year it is and continues to state "Lucio loves you, Lucio is beautiful." He cannot articulate where he lives or a viable plan for food, clothing and snf. Pt has history COPD, bipolar, Schizophrenia. Assessment What has happened this shift: Received pt. sleeping in bed at the beginning of the shift. Pt. was awoken by staff for breakfast and eats meals in his room r/t recent diagnosis of hepatitis. Education and encouragement regarding handwashing was provided by this junior technical writer, however pt. is very disorganized and does not appear to understand. Pt. also has his own bathroom. Pt. presents as cooperative, fatigued, anxious, and impulsive. He stares intently at this junior technical writer with wide-eyes and states, "I hear voices, they keep yelling at me. F... you, shut up! I'm sorry, I'm sorry!" Pt. is able to eat independently, however requires prompting and encouragement. PRN Ativan was provided without effectiveness, and pt. continued to yell loudly responding to internal stimuli throughout the morning, Dr. Bhardwaj notified (see previous notes). Pt. also made random delusional statements throughout the morning, stating, "I can't walk, I can't breathe, I stabbed myself, and I have a computer in my brain." He remained in bed napping intermittently throughout much of the day. At approximately 1600 pt. was moved to a new one-person room. This caused him to become increasingly anxious and he began yelling out and attempting to enter the other rooms of his peers. Pt. required much redirection and encouragement from staff. He had to be escorted back to his room several times. Pt. appeared anxious, and was observed to he be hyperventilating, PRN Ativan was administered with effectiveness. S/I, H/I: Pt. denies A/VH: Pt. reports A/V/HUGHES and is observed to be responding aloud throughout the day Sleep: Sleep hours are 3.5, and pt. naps intermittently during the day ADL's: Requires direction and encouragement Group attendance: No Were meds taken: Yes Any med S/E: None Mental Status Exam Appearance: Hair disheveled and wearing multiple layers of clothing, Eye contact: Intense Behavior: Cooperative, fatigued, anxious, and impulsive Speech: Somewhat hyperverbal and high pitched Mood: Restless Affect: Animated Thought process: Tangental with disorganized Thought Content: A/HUGHES and religiosity Cognition: A&O X1 Insight: Poor Judgment: Poor Interventions PRN's used: Motrin and Ativan Therapeutic interventions: Maintained a safe and supportive environment, ensured contract for safety, provided clear and simple instructions, attempted to orient to reality, monitored behaviors and provided redirection as needed, provided education and encouragement regarding handwashing, obtained orders for PRN Zyprexa and Ativan as needed, and maintained Q 15nmin safety checks. Restraints/seclusion/emergency medication: N/A Justification of Continued Inpatient Treatment: Per Dr. Bhardwaj, pt. continues to be GD and does not have a viable plan for discharge at this time. He continues to require a safe and supportive environment and medication adjustments.
[2021-09-02] MEDS: OLANZAPINE 5 MG TABLET PO SCH (18:48)
[2021-09-02] MEDS: traZODone 50mg tablet PO PRN (18:48)
[2021-09-02 19:23] VITALS: BP 107/68
[2021-09-02] MEDS ORDERED: LORazepam 0.5 MG tablet PO PRN (19:40)
[2021-09-02] MEDS ORDERED: LORazepam 2 mg/ml vial IV ONE (19:50)
--- NOTE | 2021-09-02 22:23 | NUR ---
LOS NOTE: Client had a panic attack. His eye's were wide open and staring at unseen objects. Client made rapid, repetitive statements i.e. "Shut-up Altaf! Shut-up Altaf! Shut-up Altaf!" Client attempted to enter Providers office and was unable to be redirected. This RN and a NA escorted client to his room. Clients' gait is unsteady. He is cachetic and has generalized weakness. Client attempted to step over objects that were not there, further throwing him off balance. Client began to hyperventilate and continued to make repetitive statements. RT was called and noted the clients HR was 150 bpm. An EKG was obtained. RT was unable to to provide breathing treatment. Client was not wheezing. Dr. Bhardwaj was notified and ordered 2 mg Ativan IM for 9/10 anxiety. Client accepted IM Ativan. Client continued to be disorganized and made numerous attempts to walk and was prevented from falling by staff. Client is a very high fall risk and wanders aimlessly. Client is unable to find his room. RT reassessed client. His HR was 104 and he did not require a nebulizer.
--- NOTE | 2021-09-03 04:49 | NUR ---
Nursing Progress Note: Legal hold: Voluntary Client on voluntary status for GD Report received from nurse with use of SBAR: LIAT Downs Why are they here: Pt admitted to [facility] for [facility] on a 5150 for gravely disabled from the Ortho floor, pt is confused and disoriented . He does not know where he is, what year it is and continues to state "Lucio loves you, Lucio is beautiful." He cannot articulate where he lives or a viable plan for food, clothing and half-way. Pt has history COPD, bipolar, Schizophrenia. Assessment What has happened this shift: Patient was found standing in hallway appearing confused at beginning of shift. Patient had to be placed with a sitter due to him continuing to enter other peoples room and being a fall risk. Patient kept popping back up out of bed and trying to walk around unsteady. BRYCE Rowe approved giving patient his night medications early in order to calm him down. Patient also kept making delusional statements about tech stealing his gf and counting out loud. Patient kept getting more anxious and unable to keep in his room. Charge called doctor and got Ativan 2mg IM ordered. Patient was given medication and laid back down. Patient was observed having difficulty breathing and making wheezing sounds. Nurse paged respiratory to provide breathing treatment. Patient had an oxygen and pulse checked by respiratory and pulse was 143. Charge ordered an Ekg which was checked off by hospitalist. Tech was able to calm down patient and get him to go to sleep. Patient continued to have moments of sleep and awake periods. Patient was given repeat trazodone and assisted back to bed.
[2021-09-03 08:00] VITALS: BP 109/68
[2021-09-03] MEDS: venlafaxine XR 75mg capsule (Q24H) PO SCH (08:06)
[2021-09-03] MEDS: prednisone 10mg tablet PO SCH (08:06)
[2021-09-03] MEDS: lamoTRIgine 25mg tablet PO SCH (08:06)
[2021-09-03] MEDS: midodrine 5mg tablet PO SCH ×3 (08:06→16:00)
[2021-09-03] MEDS: olanzapine 10mg tablet PO SCH (08:06)
[2021-09-03] MEDS: nicotine 21mg patch - 24 hr TD SCH (08:06)
[2021-09-03] MEDS: LORazepam 1 MG tablet PO PRN ×2 (08:07→09:49)
[2021-09-03] MEDS: lactose-reduced food (Ensure Enlive) - 237ml bottle PO SCH ×3 (08:07→18:00)
[2021-09-03] MEDS: magnesium hydroxide 30ml (MOM) UD suspension PO PRN (09:49)
[2021-09-03] MEDS ORDERED: LORazepam 1 MG tablet PO ONE (13:05)
[2021-09-03] MEDS ORDERED: clozapine 25mg tablet PO ONE (13:05)
[2021-09-03 13:49] VITALS: BP 121/78
--- NOTE | 2021-09-03 13:50 | NUR ---
Pt. exhibited increased restlessness AEB wandering the unit, attempting to enter others' rooms, and periodically yelling out, "Tejinder!" He was unable to be redirected. Pt. also had an assisted drop down to his knees (no injuries were obtained) while standing in the hallway, he appears to be fatigued and fighting sleep. This was endorsed to Dr. Bhardwaj, who ordered a one time dose of Ativan 1mg and restarted pt. on Clozaril. Pt. was assisted back to his bed and medications were administered, will continue to monitor closely. Pt. remains on LOS for fall precautions. V/S were obtained and were WNL.
--- NOTE | 2021-09-03 17:17 | NUR ---
Nursing Progress Note: Legal hold: Voluntary Client on voluntary status for GD Report received from nurse with use of SBAR: Lashanda Gabriel RN Why are they here: Pt admitted to [facility] for [facility] on a 5150 for gravely disabled from the Ortho floor, pt is confused and disoriented . He does not know where he is, what year it is and continues to state "Lucio loves you, Lucio is beautiful." He cannot articulate where he lives or a viable plan for food, clothing and nursing home. Pt has history COPD, bipolar, Schizophrenia. Assessment What has happened this shift: Received pt. laying in bed at the beginning of the shift with his eyes wide open and reaching out towards staff. He remains on LOS for fall precautions and requires direction and minimal to moderate assistance from staff to perform ADLs, including eating. Pt. continues to eat meals in his room r/t recent diagnosis of hepatitis and confused state; he is unable to comprehend handwashing before attending meals. Pt. continues to present as cooperative, fatigued, anxious, and impulsive. He again stares intently at staff and speaks in a disorganized manner, and is indiscernible at times making little sense. Pt. exhibits anxiety and continues to respond aloud to internal stimuli, PRN Ativan was administered with little effectiveness. Pt. makes delusional statements and states, "My dad is Yadiel Villa." He exhibits what appears to be paranoia and restlessly runs around his room, taking off clothing, and making chocking or stabbing gestures towards himself. He yells out, "Help! Don't kill me!" Pt. was reassured of his safety on the unit and MRX1 dose of Ativan was administered with some effectiveness. Pt. also appears to be constipated AEB getting up to sit on the toilet at frequent intervals with no result, PRN MOM was administered. After third dose of Ativan (see previous note), pt. was able to sleep throughout the afternoon. S/I, H/I: Pt. denies A/VH: Pt. reports A/V/HUGHES and is observed to be responding aloud throughout the shift Sleep: Pt. was able to nap in the afternoon ADL's: Requires direction and minimal to moderate assistance from staff. Pt. remains on LOS for fall precautions Group attendance: N/A Were meds taken: Yes Any med S/E: None Mental Status Exam Appearance: Hair and clothing disheveled r/t laying in bed Eye contact: Intense Behavior: Cooperative, fatigued, anxious, and impulsive Speech: Disorganized, and is indiscernible at times making little sense Mood: Restless Affect: Animated Thought process: Tangental with disorganization Thought Content: A/V/HUGHES and delusions Cognition: A&O X1 Insight: Poor Judgment: Poor Interventions PRN's used: Ativan X3 Therapeutic interventions: Maintained a safe and supportive environment, ensured contract for safety, provided clear and simple instructions, attempted to orient to reality, monitored behaviors and provided redirection as needed, provided education and encouragement regarding handwashing, maintained fall precautions, and maintained LOS. Restraints/seclusion/emergency medication: N/A Justification of Continued Inpatient Treatment: Per Dr. Bhardwaj, pt. continues to be GD and does not have a viable plan for discharge at this time. He continues to require a safe and supportive environment and medication adjustments.
--- NOTE | 2021-09-03 17:59 | NUR ---
Scheduled 1600 dose of Midodrine 5mg held r/t pt. sleeping, endorsed to Dr. Bhardwaj.
[2021-09-03 20:00] VITALS: BP 104/70
[2021-09-03] MEDS: docusate sod 100mg capsule PO SCH (20:00)
[2021-09-03] MEDS: OLANZAPINE 5 MG TABLET PO SCH (21:00)
[2021-09-03] MEDS: clozapine 25mg tablet PO SCH (21:00)
--- NOTE | 2021-09-04 04:33 | NUR ---
Nursing Progress Note: Legal hold: Voluntary Client on voluntary status for GD Report received from nurse with use of SBAR: Himanshu RN Why are they here: Pt admitted to [facility] for [facility] on a 5150 for gravely disabled from the Ortho floor, pt is confused and disoriented . He does not know where he is, what year it is and continues to state "Lucio loves you, Lucio is beautiful." He cannot articulate where he lives or a viable plan for food, clothing and nursing home. Pt has history COPD, bipolar, Schizophrenia. Assessment What has happened this shift: Received pt on LOS and pt was in bed sleeping. Attempted to wake pt for snacks and hs medication. Pt mumbled something unintelligible and fell back to sleep. HS meds held per Dr. Bhardwaj. Pt remained sleeping all noc.
--- NOTE | 2021-09-04 07:34 | NUR ---
Reassessment: Currently on Regular diet w/ avg intake 50% of meals. Noted Ensure Enlive TID was ordered and pt has consumed mostly 100% of them. Also participates in some snacks per documentation. Overall pt meeting est nutrient needs at this time. Recommend decreasing frequency of ONS to BID. LBM 5/10 receiving routine and PRN bowel care. Will continue to monitor. Recs: 1. Continue Regular diet as tolerated 2. Ensure Enlive TID; decrease frequency to BID 3. Bowel care PRN 4. Weekly wts Addendum: 09/04/21 at [address] Amended: Links added.
[2021-09-04 08:00] VITALS: BP 94/67
[2021-09-04] MEDS ORDERED: clozapine 25mg tablet PO SCH (08:00)
[2021-09-04] MEDS: lactose-reduced food (Ensure Enlive) - 237ml bottle PO SCH ×3 (08:00→18:05)
[2021-09-04] MEDS: olanzapine 10mg tablet PO SCH (09:06)
[2021-09-04] MEDS: midodrine 5mg tablet PO SCH ×3 (09:06→16:53)
[2021-09-04] MEDS: docusate sod 100mg capsule PO SCH ×2 (09:07→21:07)
[2021-09-04] MEDS: venlafaxine XR 75mg capsule (Q24H) PO SCH (09:07)
[2021-09-04] MEDS: lamoTRIgine 25mg tablet PO SCH (09:07)
[2021-09-04] MEDS: prednisone 10mg tablet PO SCH (09:07)
[2021-09-04] MEDS: nicotine 21mg patch - 24 hr TD SCH (09:07)
[2021-09-04] MEDS: clozapine 25mg tablet PO SCH ×2 (09:29→21:07)
--- NOTE | 2021-09-04 11:37 | NUR ---
Pt's friend Pollo Knowles called regarding wanting to talk with pt's addiction social worker about possibly getting pt. into [facility]. This justowriter operator left a note for pt's addiction social worker with pt's permission.
[2021-09-04] MEDS: LORazepam 1 MG tablet PO PRN (15:41)
[2021-09-04] MEDS: acetaminophen 325mg tablet PO PRN (15:47)
--- NOTE | 2021-09-04 16:39 | NUR ---
Nursing Progress Note: Legal hold: Voluntary Client on voluntary status for GD Report received from nurse with use of SBAR: Lashanda Gabriel RN Why are they here: Pt admitted to [facility] for [facility] on a 5150 for gravely disabled from the Ortho floor, pt is confused and disoriented . He does not know where he is, what year it is and continues to state "Lucio loves you, Lucio is beautiful." He cannot articulate where he lives or a viable plan for food, clothing and residential. Pt has history COPD, bipolar, Schizophrenia. Assessment What has happened this shift: Received pt. sleeping in bed at the beginning of the shift he remains on LOS r/t fall precautions and requires direction and minimal to moderate assistance from staff to perform ADLs, including eating. Pt. continues to eat meals in his room r/t recent diagnosis of hepatitis and confused state; he continues to be unable to comprehend handwashing before attending meals. Pt. presents as animated with decreased anxiety, confusion, and paranoia this shift. He continues to speak in a disorganized manner, and is indiscernible at times making little sense, but is able to make most of his needs known. Pt. states animatedly, "I try to be good!" He continues to report A/HUGHES, and when further questioned regarding these states, "They tell me to be good." Pt. is again exhibiting religiosity. He denies any paranoid thoughts that others may want to hurt him. Pt's Clozaril was decreased to 25mg Q AM per Dr. Bhardwaj. At approximately 1530, pt. reported increased anxiety and again began to exhibit restlessness and audible wheezing. His lung sounds were auscultated, and continue to present as clear bilaterally. PRN Ativan was administered along with Tylenol for generalized pain with effectiveness. Pt. remained withdrawn in his room throughout the day and required less assistance with preforming ADLs, however continues to require frequent redirection. It was noted that he made his bed and cleaned up his room. S/I, H/I: Pt. denies A/VH: Pt. reports A/V/HUGHES and is observed to be responding aloud to internal stimuli at intervals Sleep: Sleep hours are 10.25, and pt. naps intermittently ADL's: Requires direction and minimal to moderate assistance from staff. Pt. remains on LOS for fall precautions Group attendance: N/A Were meds taken: Yes Any med S/E: None Mental Status Exam Appearance: Hair and clothing disheveled r/t laying in bed Eye contact: Intense Behavior: Cooperative, fatigued, anxious, and impulsive Speech: Disorganized, and is indiscernible at times making little sense Mood: Restless Affect: Animated Thought process: Tangental with disorganization Thought Content: A/V/HUGHES and delusions Cognition: A&O X1 Insight: Poor Judgment: Poor Interventions PRN's used: Ativan X1 and Tylenol Therapeutic interventions: Maintained a safe and supportive environment, ensured contract for safety, provided clear and simple instructions, attempted to orient to reality, monitored behaviors and provided redirection as needed, provided education and encouragement regarding handwashing, encouraged independent performance of ADLs and provided assistance as needed, maintained fall precautions, and maintained LOS. Restraints/seclusion/emergency medication: N/A Justification of Continued Inpatient Treatment: Per Dr. Bhardwaj, pt. continues to be GD and does not have a viable plan for discharge at this time. He continues to require a safe and supportive environment and medication adjustments.
[2021-09-04 20:03] VITALS: BP 152/118
[2021-09-04] MEDS: OLANZAPINE 5 MG TABLET PO SCH (21:06)
--- NOTE | 2021-09-05 01:13 | NUR ---
Nursing Progress Note: Legal hold: Voluntary Client on voluntary status for GD Report received from LIAT Downs with use of SBAR: Why are they here: Pt admitted to [facility] for [facility] health on a 5150 for gravely disabled from the Ortho floor, pt is confused and disoriented . He does not know where he is, what year it is and continues to state "Lucio loves you, Lucio is beautiful." He cannot articulate where he lives or a viable plan for food, clothing and detention. Pt has history COPD, bipolar, Schizophrenia. Assessment What has happened this shift: Patient lying on his bed at shift change. He has a sitter at bedside. Patient is talkative tonight, even though most of it unintelligible. He does clearly say, "you're a nice man, Lucio loves you." Patient is hyper-spiritism and multiple times says Lucio loves you." Patient stayed in his room all night, "cleaning myself." He was compliant with medications, and went to sleep soon after.
[2021-09-05 07:20] VITALS: BP_SYST 107; BP_SYST 86; BP_SYST 99; BP_DIAS 59; BP_DIAS 71; BP_DIAS 74
[2021-09-05 07:51] VITALS: BP 83/68
[2021-09-05] MEDS: docusate sod 100mg capsule PO SCH ×2 (07:52→20:20)
[2021-09-05] MEDS: venlafaxine XR 75mg capsule (Q24H) PO SCH (07:52)
[2021-09-05] MEDS: lamoTRIgine 25mg tablet PO SCH (07:52)
[2021-09-05] MEDS: prednisone 10mg tablet PO SCH (07:52)
[2021-09-05] MEDS: clozapine 25mg tablet PO SCH ×2 (07:53→20:20)
[2021-09-05] MEDS: olanzapine 10mg tablet PO SCH (07:53)
[2021-09-05] MEDS: midodrine 5mg tablet PO SCH ×3 (07:53→16:51)
[2021-09-05] MEDS: lactose-reduced food (Ensure Enlive) - 237ml bottle PO SCH ×3 (08:00→18:32)
[2021-09-05] MEDS: nicotine 21mg patch - 24 hr TD SCH (08:00)
--- NOTE | 2021-09-05 09:34 | NUR ---
CM-Pre-dcp Presenting Issues: Pt's capacity to attend to his ADLs have declined and pt's requesting to rt to [facility]. Pt had lived @ [facility] some time ago, placed by [facility]. Interventions: Clinician contacted [facility] @ [phone], per t/c house staff will have the Kitchen Steward/Stewardess call clinician to discuss pt going there upon d/c. Plan: Clinician will continue to monitor and f/u with community providers re dcp for pt. Talita Sanchez LCSW Addendum: 09/05/21 at 0937 by Talita Sanchez SS Amended: Links added.
--- NOTE | 2021-09-05 17:21 | NUR ---
Nursing Progress Note: Legal hold: Voluntary Client on voluntary status for GD Report received from nurse with use of SBAR: LIAT Zamudio Why are they here: Pt admitted to [facility] for [facility] health on a 5150 for gravely disabled from the Ortho floor, pt is confused and disoriented . He does not know where he is, what year it is and continues to state "Lucio loves you, Lucio is beautiful." He cannot articulate where he lives or a viable plan for food, clothing and custodial. Pt has history COPD, bipolar, Schizophrenia. Assessment What has happened this shift: Received pt on LOS and asleep. When pt awoke, he was more stable and not as sedated. evaluated and discontinued the LOS. Pt remains psychotic and is witnessed throughout the shift talking to himself. Little that he is saying makes sense with reality. Pt stated at one point, "It's ok to kill yourself, isn't it?" Pt though, denies S.I./H.I. Pt was not incontinent today and used the bathroom multiple times by himself. Pt took medications without issue. No agitation this shift. S/I, H/I: Pt. denies A/VH: Pt. reports A/V/HUGHES and is observed to be responding aloud throughout the shift Sleep: Pt. was able to nap in the afternoon ADL's: Requires direction and minimal to moderate assistance from staff. Pt. remains on LOS for fall precautions Group attendance: N/A Were meds taken: Yes Any med S/E: None Mental Status Exam Appearance: Hair and clothing disheveled r/t laying in bed Eye contact: Intense Behavior: Cooperative, fatigued, anxious, and impulsive Speech: Disorganized, and is indiscernible at times making little sense Mood: Restless Affect: Animated Thought process: Tangental with disorganization Thought Content: A/V/HUGHES and delusions Cognition: A&O X1 Insight: Poor Judgment: Poor Interventions PRN's used: Therapeutic interventions: Maintained a safe and supportive environment, ensured contract for safety, provided clear and simple instructions, attempted to orient to reality, monitored behaviors and provided redirection as needed, provided education and encouragement regarding handwashing, maintained fall precautions, and maintained LOS. Restraints/seclusion/emergency medication: N/A Justification of Continued Inpatient Treatment: Per Dr. Bhardwaj, pt. continues to be GD and does not have a viable plan for discharge at this time. He continues to require a safe and supportive environment and medication adjustments.
[2021-09-05 20:00] VITALS: BP 110/72
--- NOTE | 2021-09-06 00:48 | NUR ---
Nursing Progress Note: Legal hold: Voluntary Client on voluntary status for GD Report received from LIAT Downs with use of SBAR: Why are they here: Pt admitted to [facility] for Behavior[facility] health on a 5150 for gravely disabled from the Ortho floor, pt is confused and disoriented . He does not know where he is, what year it is and continues to state "Lucio loves you, Lucio is beautiful." He cannot articulate where he lives or a viable plan for food, clothing and long-term. Pt has history COPD, bipolar, Schizophrenia. Assessment What has happened this shift: Patient seen in the community room at shift change. He sits by himself at the back of the room, and talks to himself. He reports that he's still having hallucinations and they make him scared. Patient has been more talkative lately, but much of what he says does not make sense. He is not LOS anymore, and remains physically challenged, especially when ambulating. He is able to get to meals on his own with gentle nudging. Patient is compliant with medications. Olanzapine has been Dc'd. Patient went to bed after med pass, but woke after a couple hours. He states that had a nightmare and, "I'm scared." This nurse talked to him afterward, and reassured him that we are here to protect him. He eventually was able to get back to sleep. S/I, H/I: Pt. denies A/VH: Pt. reports A/V/HUGHES and is observed to be responding aloud throughout the shift Sleep: See sleep assessment ADL's: Requires direction and minimal to moderate assistance from staff. Pt. remains on LOS for fall precautions Group attendance: N/A Were meds taken: Yes Any med S/E: None reported or observed. Mental Status Exam Appearance: Hair and clothing disheveled r/t laying in bed Eye contact: Intense, paranoid Behavior: Cooperative, fatigued, anxious, and impulsive Speech: Disorganized, and is indiscernible at times making little sense. Mood: Restless Affect: Animated Thought process: Tangential with disorganization Thought Content: A/V/HUGHES and delusions Cognition: A&O X1 Insight: Poor Judgment: Poor Interventions PRN's used: Therapeutic interventions: Maintained a safe and supportive environment, ensured contract for safety, provided clear and simple instructions, attempted to orient to reality, monitored behaviors and provided redirection as needed, provided education and encouragement regarding handwashing, maintained fall precautions, and maintained LOS. Restraints/seclusion/emergency medication: N/A Justification of Continued Inpatient Treatment: Per Dr. Bhardwaj, pt. continues to be GD and does not have a viable plan for discharge at this time. He continues to require a safe and supportive environment and medication adjustments. 6+
[2021-09-06] MEDS: venlafaxine XR 75mg capsule (Q24H) PO SCH (07:43)
[2021-09-06] MEDS: midodrine 5mg tablet PO SCH ×3 (07:44→16:14)
[2021-09-06] MEDS: clozapine 25mg tablet PO SCH ×2 (07:44→21:27)
[2021-09-06] MEDS: lamoTRIgine 25mg tablet PO SCH (07:45)
[2021-09-06] MEDS: docusate sod 100mg capsule PO SCH ×2 (07:45→21:21)
[2021-09-06] MEDS: prednisone 10mg tablet PO SCH (07:45)
[2021-09-06] MEDS: nicotine 21mg patch - 24 hr TD SCH (07:47)
[2021-09-06 08:00] VITALS: BP 101/65
--- NOTE | 2021-09-06 09:48 | NUR ---
Pt. attended the afternoon group today.This group was an Art Expression group called Feelings Opposites where they expressed opposite emotions and did a dialogue with these emotions. Pt. did accomplish an art expression but did not do what was asked of him meaning he struggled to follow the instructions given. He appeared to enjoy the process of coloring in the circles and went with his own version of what he felt like coloring. When he was done with his piece he asked if it could be hung up on the wall with all the other artwork. He could not really explain what his thought process was behind his drawing, he does not show much insight into his own mental illness. His thought content appears to contain delusional content and his thought process veers into loose associations. Nathaly Wiseman, ELECTRONIC SCALE ASSEMBLER AND TESTER
[2021-09-06] MEDS ORDERED: lactose-reduced food (Ensure Enlive) - 237ml bottle PO SCH (13:00)
--- NOTE | 2021-09-06 18:01 | NUR ---
Nursing Progress Note: Legal hold: Voluntary Client on voluntary status for GD Report received from RN with use of SBAR Why are they here: Pt admitted to [place] for [facility]al health on a 5150 for gravely disabled from the Ortho floor, pt is confused and disoriented . He does not know where he is, what year it is and continues to state "Lucio loves you, Lucio is beautiful." He cannot articulate where he lives or a viable plan for food, clothing and nursing home. Pt has history COPD, bipolar, Schizophrenia. Assessment What has happened this shift: Received pt. in bed sleeping w/o distress at the beginning of the shift. Pt cooperative with vitals and took scheduled meds w/o issue. Pt ate well and was friendly with staff and others, although his speech is often disorganized and does not appear to be related to what is happening at the moment. Pt needs direction with some activities and remains isolative to his room for portions of the day. Pt continues to speak about being good and taoist themes. Pt keeping room neat and clean. He did not need breathing Tx this shift. S/I, H/I: Denies A/VH: Reports A/V/HUGHES and observed responding to internal stimuli Sleep: Napped ADL's: Requires direction and assistance from staff Group attendance: No Were meds taken: Yes Any med S/E: None Mental Status Exam Appearance: Mildly disheveled in own clothes Eye contact: Wide eyed and intense Behavior: Cooperative, fatigued, anxious Speech: Disorganized, not coherent at times Mood: Restless Affect: Animated Thought process: Tangential and disorganized Thought Content: R/T A/V/HUGHES and delusions Cognition: A&O X1 Insight: Poor Judgment: Poor Interventions PRN's used: Therapeutic interventions: Maintained a safe and supportive environment, ensured contract for safety, provided clear and simple instructions, attempted to orient to reality, monitored behaviors and provided redirection as needed, provided education and encouragement regarding handwashing, encouraged independent performance of ADLs and provided assistance as needed, maintained fall precautions, and maintained LOS. Restraints/seclusion/emergency medication: N/A Justification of Continued Inpatient Treatment: Per Dr. Bhardwaj, pt. continues to be GD and does not have a viable plan for discharge at this time. He continues to require a safe and supportive environment and medication adjustments.
[2021-09-06 19:00] VITALS: BP 114/55
[2021-09-06] MEDS: LORazepam 1 MG tablet PO PRN (21:20)
[2021-09-06] MEDS: traZODone 50mg tablet PO SCH (21:21)
--- NOTE | 2021-09-07 04:46 | NUR ---
Nursing Progress Note: Legal hold: Voluntary Client on voluntary status for GD Why are they here: Pt admitted to [facility] for Behavioral health on a 5150 for gravely disabled from the Ortho floor, pt is confused and disoriented . He does not know where he is, what year it is and continues to state "Lucio loves you, Lucio is beautiful." He cannot articulate where he lives or a viable plan for food, clothing and half-way. Pt has history COPD, bipolar, Schizophrenia. Assessment What has happened this shift: Patient observed laying in bed at the beginning of shift. Pleasant and cooperative with care; compliant with medication. PRN Ativan provided. He denies SI, HI, A/VH; no apparent delusions expressed this shift. Patient responding only with "yes ma'am" and "no ma'am." Appears confused and requires redirection sometimes. Patient participated in HS snack prior to bed; N/O for Trazodone started this shift with positive effect. Justification of Continued Inpatient Treatment: Per Dr. Bhardwaj, pt. continues to be GD and does not have a viable plan for discharge at this time. He continues to require a safe and supportive environment and medication adjustments.
[2021-09-07 07:43] VITALS: BP 101/79
[2021-09-07 07:45] LABS: BASOPHILS # (AUTO) 0.1 X10'3 (0-0.2); BASOPHILS % (AUTO) 0.9 % (0-1); EOSINOPHILS % (AUTO) 0.1 % (0-6); HEMATOCRIT 36.1 % (42.0-52.0); HEMOGLOBIN 12.2 g/dl (14.0-17.9); LYMPHOCYTES % (AUTO) 26.8 % (21-51); MEAN CORPUSCULAR HEMOGLOBIN 32.3 PG (27.0-31.0); MEAN CORPUSCULAR HGB CONC 33.8 g/dL (33.0-36.5); MEAN CORPUSCULAR VOLUME 95.6 FL (78-98); MEAN PLATELET VOLUME 8.1 FL (7.4-10.4); MONOCYTES # (AUTO) 0.7 X10'3 (0-0.9); MONOCYTES % (AUTO) 9.5 % (2-12); NEUTROPHILS # (AUTO) 4.6 X10'3 (1.8-7.7); NEUTROPHILS % (AUTO) 62.7 % (42-75); PLATELET COUNT 262 X10'3 (140-440); RED BLOOD COUNT 3.78 X10'6 (4.70-6.10); RED CELL DISTRIBUTION WIDTH 14.6 % (11.5-14.5); WHITE BLOOD COUNT 7.3 X10'3 (4.5-11.0)
[2021-09-07] MEDS: prednisone 10mg tablet PO SCH (07:45)
[2021-09-07] MEDS: lamoTRIgine 25mg tablet PO SCH (07:45)
[2021-09-07] MEDS: clozapine 25mg tablet PO SCH ×2 (07:46→20:01)
[2021-09-07] MEDS: midodrine 5mg tablet PO SCH ×3 (07:46→15:41)
[2021-09-07] MEDS: docusate sod 100mg capsule PO SCH ×2 (07:46→20:01)
[2021-09-07] MEDS: venlafaxine XR 75mg capsule (Q24H) PO SCH (07:46)
[2021-09-07] MEDS: nicotine 21mg patch - 24 hr TD SCH (07:47)
[2021-09-07 08:34] LABS: ALANINE AMINOTRANSFERASE 31 U/L (12-78); ALBUMIN 3.3 G/DL (3.4-5.0); ALBUMIN/GLOBULIN RATIO 1.2 (1.1-1.5); ALKALINE PHOSPHATASE 70 IU/L (46-116); ANION GAP 7 (8-16); ASPARTATE AMINO TRANSFERASE 22 U/L (10-37); BILIRUBIN,TOTAL 0.4 MG/DL (0.1-1.0); BLOOD UREA NITROGEN 20 MG/DL (7-18); BUN/CREATININE RATIO 23.8 (5.4-32.0); CALCIUM 8.3 MG/DL (8.5-10.1); CHLORIDE 107 MMOL/L (99-107); CREATININE 0.84 MG/DL (0.60-1.10); GLUCOSE 105 MG/DL (70-104); POTASSIUM 4.2 MMOL/L (3.5-5.1); SODIUM 142 MMOL/L (135-145); TOTAL CARBON DIOXIDE 27.9 MMOL/L (24-32); TOTAL PROTEIN 6.1 G/DL (6.4-8.2); eGFR > 90 ML/MIN
--- NOTE | 2021-09-07 10:43 | NUR ---
Pt. attended group today. Today we talked about the different types of unhealthy thinking and how to identify each one. Pt. also participated in a visualization technique at the end of the session. Pt engaged in the group minimally. He appeared to struggle to follow exactly what was going on in group, he would occasionally share thoughts that were unrelated to the topic. His demeanor was calm, compliant and pleasant to work with. His thoughts appeared to contain some delusional thoughts and his thought process was circumstantial. Nathaly Wiseman, INSTRUCTOR TRAINER CANINE SERVICE
--- NOTE | 2021-09-07 13:08 | NUR ---
Nursing Progress Note: Legal hold: Voluntary Client on voluntary status for GD Why are they here: Pt admitted to [place] for Behavioral health on a 5150 for gravely disabled from the Ortho floor, pt is confused and disoriented . He does not know where he is, what year it is and continues to state "Lucio loves you, Lucio is beautiful." He cannot articulate where he lives or a viable plan for food, clothing and fpc. Pt has history COPD, bipolar, Schizophrenia. Assessment What has happened this shift: Patient sleeping at the beginning of shift. Pleasant and cooperative with care; compliant with mediation. Denies SI, HI, A/VH; no apparent delusions expressed but responds minimally. Patient participates in meals and groups. Sits in the community room and greets staff each time they walk in. Justification of Continued Inpatient Treatment: Per Dr. Bhardwaj, pt. continues to be GD and does not have a viable plan for discharge at this time. He continues to require a safe and supportive environment and medication adjustments.
[2021-09-07] MEDS: traZODone 50mg tablet PO SCH ×2 (20:01→22:31)
[2021-09-07] MEDS: LORazepam 1 MG tablet PO PRN (22:28)
[2021-09-07] MEDS ORDERED: traZODone 50mg tablet PO ONE (22:35)
--- NOTE | 2021-09-08 04:49 | NUR ---
Nursing Progress Note: Legal hold: Voluntary Client on voluntary status for GD Report received from JOSE Wren with [facility] Why are they here: Pt admitted to [place] for Behavioral health on a 5150 for gravely disabled from the Ortho floor, pt is confused and disoriented . He does not know where he is, what year it is and continues to state "Lucio loves you, Lucio is beautiful." He cannot articulate where he lives or a viable plan for food, clothing and [facility]. Pt has history COPD, bipolar, Schizophrenia. Assessment What has happened this shift: Patient was observed smiling and laughing with staff and other patients at change of shift. Patient was later found sleeping in bed. Patient slept until snack time. Patient participated in snack and took all night medications Patient socialized with other patients and staff before going back to bed. Patient later got up becoming more and more anxious patient was given Ativan and trazodone to stop him from working himself up more. Patient was assisted back to his room and to bed.
--- NOTE | 2021-09-08 07:25 | NUR ---
Reassessment: Currently on Regular diet w/ mostly 100% intake of meals and ONS. Also participates in some snacks per documentation. Overall pt meeting est nutrient needs at this time. Recommend decreasing frequency of ONS to once daily vs d/c if PO intake of meals remains close to 100%. [facility] 09/04 w/ PRN bowel care available. Will continue to monitor. Recs: 1. Continue Regular diet as tolerated 2. Ensure Enlive TID; decrease frequency to Once daily 3. Bowel care PRN 4. Weekly wts Addendum: 09/08/21 at [address] Amended: Links added.
[2021-09-08 07:30] VITALS: BP 99/71
[2021-09-08] MEDS: prednisone 10mg tablet PO SCH (07:54)
[2021-09-08] MEDS: docusate sod 100mg capsule PO SCH ×2 (07:54→20:31)
[2021-09-08] MEDS: midodrine 5mg tablet PO SCH ×3 (07:54→16:34)
[2021-09-08] MEDS: venlafaxine XR 75mg capsule (Q24H) PO SCH (07:54)
[2021-09-08] MEDS: lamoTRIgine 25mg tablet PO SCH (07:54)
[2021-09-08] MEDS: nicotine 21mg patch - 24 hr TD SCH (08:00)
[2021-09-08] MEDS: clozapine 25mg tablet PO SCH ×2 (08:30→20:32)
[2021-09-08] MEDS: LORazepam 1 MG tablet PO PRN (10:31)
--- NOTE | 2021-09-08 15:12 | NUR ---
DCP Presenting Issues: Pt's at baseline and has verbalized that he can no longer live independently expressed desires to rt to [facility]. Interventions: [facility] SW will come to the hospital on 09/12 @ 11AM to assess pt for [facility] services. [facility] willing to assess pt for possible placement there. Clinician faxed referral for darrell [facility] to [facility]. Plan: Clinician will continue to engage [facility] in dcp activities. Talita Sanchez LCSW Addendum: 09/08/21 at 1516 by Talita Sanchez SS Amended: Links added.
--- NOTE | 2021-09-08 18:13 | NUR ---
Nursing Progress Note: Legal hold: Voluntary Client on voluntary status for GD Report received from nurse with use of SBAR: LIAT Sin Why are they here: Pt admitted to [place] for Behavioral health on a 5150 for gravely disabled from the Ortho floor, pt is confused and disoriented . He does not know where he is, what year it is and continues to state "Lucio loves you, Lucio is beautiful." He cannot articulate where he lives or a viable plan for food, clothing and intermediate. Pt has history COPD, bipolar, Schizophrenia. Assessment What has happened this shift: Received pt. sleeping in bed at start of shift. Pt. awoke and requesting coffee. Pt. took all medications and ate all meals in the community room. 1:1 done at bedside, pt. states, Im great brother, how are you?. Pt. denies all psych symptoms. Pt. states, I dont feel suicidal, I love life, life is a gift. Pt. makes bizarre requests, states, I need a urinal when asked if he was having difficulty using the toilet, pt. stated, No. Pt. states, Im hearing voices. Pt. requesting to play the Someecardsr. Pt. requesting clozaril, RN informed pt. that clozaril is scheduled in AM and DENY RN offered pt. an Ativan PRN and pt. received 1mg po with good effect. S/I, H/I: Denies A/VH: +AH Sleep: Sleep hours are 7, and pt. naps intermittently ADL's: Requires direction and minimal to moderate assistance from staff. Group attendance: Yes Were meds taken: Yes Any med S/E: Fatigue Mental Status Exam Appearance: Hair and clothing disheveled r/t laying in bed Eye contact: Intense Behavior: Cooperative, fatigued, anxious, and impulsive Speech: WNL Mood: Anxious Affect: Blunted Thought process: Tangential Thought Content: Play Cognition: A&O X1 Insight: Poor Judgment: Poor Interventions PRN's used: Ativan X1 Therapeutic interventions: Maintained a safe and supportive environment, ensured contract for safety, provided clear and simple instructions, attempted to orient to reality, monitored behaviors and provided redirection as needed, provided education and encouragement regarding handwashing, encouraged independent performance of ADLs and provided assistance as needed, maintained fall precautions, and maintained LOS. Restraints/seclusion/emergency medication: N/A Justification of Continued Inpatient Treatment: Per Dr. Bhardwaj, pt. continues to be GD and does not have a viable plan for discharge at this time. He continues to require a safe and supportive environment and medication adjustments.
[2021-09-08 20:29] VITALS: BP 113/72
[2021-09-08] MEDS: traZODone 50mg tablet PO SCH (20:30)
[2021-09-09] MEDS: ipratropium/albuterol 3ml nebule NEB PRN ×2 (02:20→12:34)
[2021-09-09] MEDS: clozapine 25mg tablet PO SCH ×3 (04:09→20:25)
--- NOTE | 2021-09-09 04:42 | NUR ---
Nursing Progress Note: Legal hold: Voluntary Client on voluntary status for GD Report received from Nurse with [facility] Why are they here: Pt admitted to [place] for Behavioral health on a 5150 for gravely disabled from the Ortho floor, pt is confused and disoriented. He does not know where he is, what year it is and continues to state "Lucio loves you, Lucio is beautiful." He cannot articulate where he lives or a viable plan for food, clothing and intermediate. Pt has history COPD, bipolar, Schizophrenia. Assessment What has happened this shift: Patient was observed pacing around unit and socializing with other patients. Patient continues to ask for the guitar playing for a short period and then brining it back. Patient did this through out the night. Patient got up to participate in snack time and talk to other patients. Patient took all night medications including prn trazodone to help him sleep. Patient slept for three hours before getting up and asking for the guitar and headphones repetitively.
[2021-09-09 08:00] VITALS: BP 91/60
[2021-09-09] MEDS: nicotine 21mg patch - 24 hr TD SCH (08:00)
--- NOTE | 2021-09-09 08:00 | NUR ---
Orthostatic vitals obtained per provider request: Supine: 103/64 HR 83 Sittin/71 HR 87 Standin/63 HR 92
[2021-09-09] MEDS: midodrine 5mg tablet PO SCH ×3 (08:19→16:23)
[2021-09-09] MEDS: lamoTRIgine 25mg tablet PO SCH (08:19)
[2021-09-09] MEDS: venlafaxine XR 75mg capsule (Q24H) PO SCH (08:20)
[2021-09-09] MEDS: prednisone 10mg tablet PO SCH (08:20)
[2021-09-09] MEDS: docusate sod 100mg capsule PO SCH ×2 (08:20→20:25)
[2021-09-09] MEDS: LORazepam 1 MG tablet PO PRN ×2 (13:19→20:24)
--- NOTE | 2021-09-09 17:09 | NUR ---
Nursing Progress Note: Legal hold: Voluntary Client on voluntary status for GD Report received from nurse with use of SBAR: LIAT Sin Why are they here: Pt admitted to [place] for Behavioral health on a 5150 for gravely disabled from the Ortho floor, pt is confused and disoriented . He does not know where he is, what year it is and continues to state "Lucio loves you, Lucio is beautiful." He cannot articulate where he lives or a viable plan for food, clothing and senior care. Pt has history COPD, bipolar, Schizophrenia. Assessment What has happened this shift: Received pt. sleeping in bed at start of shift. Pt. awoke and requesting coffee. Pt. took all medications and ate all meals in the community room. 1:1 done at bedside, pt. states, Im great brother, how are you?. Pt. denies all psych symptoms. When asked the date pt. replied, Is it [place]? My birthday is right after een, my grandparents loved to visit us. Pt. overheard telling another pt. that he hears voices. Pt. appears anxious and perseverates on getting a shower. When pt. told to wait for his turn pt. asks another staff member to get him in the shower. Pt. states repetitively, Im good, how are you good man Im clean I dont stink?. Pt. requested Clozaril. Pt. informed that Clozaril is scheduled only for AM and HS. RN offered pt. an Ativan 1mg po and pt. took with moderate effect. Pt. observed coloring on his hands and told not to do that, pt. states, I understand man. Pt. asks to play guitar throughout the day. S/I, H/I: Denies A/VH: +AH Sleep: Sleep hours are 7.5, and pt. naps intermittently ADL's: Requires direction and minimal to moderate assistance from staff. Pt. showered today. Group attendance: Yes Were meds taken: Yes Any med S/E: Fatigue Mental Status Exam Appearance: Hair and clothing disheveled r/t laying in bed Eye contact: Intense Behavior: Cooperative, fatigued, anxious, and impulsive Speech: WNL Mood: Anxious Affect: Blunted Thought process: Tangential, d/o, perseverative. Thought Content: Circumstantial. Cognition: A&O to self and place. Insight: Poor Judgment: Poor Interventions PRN's used: Ativan X1 Therapeutic interventions: Maintained a safe and supportive environment, ensured contract for safety, provided clear and simple instructions, attempted to orient to reality, monitored behaviors and provided redirection as needed, provided education and encouragement regarding handwashing, encouraged independent performance of ADLs and provided assistance as needed, maintained fall precautions, and maintained LOS. Restraints/seclusion/emergency medication: N/A Justification of Continued Inpatient Treatment: Per Dr. Bhardwaj, pt. continues to be GD and does not have a viable plan for discharge at this time. He continues to require a safe and supportive environment and medication adjustments.
[2021-09-09] MEDS: traZODone 50mg tablet PO SCH (20:24)
[2021-09-09 20:50] VITALS: BP 99/69
--- NOTE | 2021-09-10 01:21 | NUR ---
NURSING PROGRESS NOTE Problem : Pt admitted to [place] for Behavioral health on a 5150 for gravely disabled from the Ortho floor, pt is confused and disoriented. He does not know where he is, what year it is and continues to state "Lucio loves you, Lucio is beautiful." He cannot articulate where he lives or a viable plan for food, clothing and prison. Pt has history COPD, bipolar, Schizophrenia. Interventions : Maintained a safe and supportive environment, ensured contract for safety, provided clear and simple instructions, attempted to orient to reality, monitored behaviors and provided redirection as needed, encouraged regarding handwashing, encouraged independent performance of ADLs and provided assistance as needed, maintained fall precautions.PT utilizes prn Ativan, because he is having some pressured speech and making antsy movements Response : pt is wide- eyed and talkative. He asks to play the guitar and is seen socializing with peers. He has RN write rockstar on his wristband. He is animated and pleasant on interview. He takes his HS medications without issue. Ativan that was given was affective and pt able to fall asleep. Plan : pt. continues to be GD and does not have a viable plan for discharge at this time. He continues to require a safe and supportive environment and medication adjustments.
[2021-09-10] MEDS: ipratropium/albuterol 3ml nebule NEB PRN ×2 (04:20→20:43)
[2021-09-10] MEDS: LORazepam 1 MG tablet PO PRN ×4 (04:21→20:09)
[2021-09-10 08:00] VITALS: BP 100/62
[2021-09-10] MEDS: prednisone 10mg tablet PO SCH (08:20)
[2021-09-10] MEDS: venlafaxine XR 75mg capsule (Q24H) PO SCH (08:20)
[2021-09-10] MEDS: midodrine 5mg tablet PO SCH ×3 (08:20→16:01)
[2021-09-10] MEDS: clozapine 25mg tablet PO SCH ×2 (08:20→21:00)
[2021-09-10] MEDS: lamoTRIgine 25mg tablet PO SCH (08:20)
[2021-09-10] MEDS: docusate sod 100mg capsule PO SCH ×2 (08:20→20:10)
[2021-09-10] MEDS: nicotine 21mg patch - 24 hr TD SCH (08:21)
[2021-09-10] MEDS: ibuprofen tablet 400 MG TABLET PO PRN (13:13)
--- NOTE | 2021-09-10 16:04 | NUR ---
PRNs Administered: Ativan X2 and breathing tx for reported anxiety and audible wheezing Interventions Offered: Active listening and positive encouragement Response to Medication: Pt.reported and exhibited relief from anxiety and wheezes gone
--- NOTE | 2021-09-10 16:51 | NUR ---
Problem : Pt admitted to [place] for Behavioral health on a 5150 for gravely disabled from the Ortho floor, pt is confused and disoriented . He does not know where he is, what year it is and continues to state "Lucio loves you, Lucio is beautiful." He cannot articulate where he lives or a viable plan for food, clothing and senior care. Pt has history COPD, bipolar, Schizophrenia. Interventions : Received pt. awake sitting in the hallway at the beginning of the shift, he greeted this specification writer animatedly. Pt. continues to require education regarding handwashing before attending meals r/t previous diagnosis of hepatitis A, and he reports understanding. He attended breakfast in the Group Room and was able to complete ADLs independently with direction from staff. Pt. continues to speak in a disorganized manner and speaks of various things out of context, but is able to be redirected. He continues to report anxiety and appears visibly anxious at intervals AEB a wide eyed stare, restlessness, and audible wheezing. PRN Ativan and breathing treatments were administered with effectiveness and pt. is able to be reassured of his safety. Pt. denies any further A/V/HUGHES, and was not observed to be responding aloud to internal stimuli as previously noted. However, pt. makes occasional grandiose delusional statements such as, "I'm a famous rn stars, all the bands know me!" He also continues to exhibit religiosity. Response : Pt. remained up throughout the day and was observed to be listening to music, playing the guitar, and interacting appropriately with others. PRN Motrin was administered for bilateral knee pain with effectiveness. He continues to require direction at and positive encouragement. Plan : Per Dr. Kelly, pt. continues to require medication titration and a safe and supportive environment. He will discharge to [facility].
[2021-09-10 19:50] VITALS: BP 102/64
[2021-09-10] MEDS: traZODone 50mg tablet PO SCH (20:09)
--- NOTE | 2021-09-10 23:03 | NUR ---
NURSING PROGRESS NOTE Problem : Pt admitted to [place] for Behavioral health on a 5150 for gravely disabled from the Ortho floor, pt is confused and disoriented. He does not know where he is, what year it is and continues to state "Lucio loves you, Lucio is beautiful." He cannot articulate where he lives or a viable plan for food, clothing and [facility]. Pt has history COPD, bipolar, Schizophrenia. Interventions : Maintained a safe and supportive environment, ensured contract for safety, provided clear and simple instructions, attempted to orient to reality, monitored behaviors and provided redirection as needed, encouraged regarding handwashing, encouraged independent performance of ADLs and provided assistance as needed, maintained fall precautions.PT utilizes prn Ativan, because he is anxious and starting to wheeze. Response : Pt is excited when RN brings him blue and purple eyeshadow. PT states he wants to look like a rockstar. RN brushes and bull his hair and applies eye shadow. PT is jovial and polite with staff and peers. He makes direct eye contact and has a wide eyed look to him at all times. PT appears to be anxious around 1999, and is making a wheezing sound with his throat, 02 sats are 95%. RT is paged for a breathing tx, Ativan 1mg prn given. PT was given breathing tx with good effect. Plan : pt. continues to be GD and does not have a viable plan for discharge at this time. He continues to require a safe and supportive environment and medication adjustments.
[2021-09-11] MEDS: docusate sod 100mg capsule PO SCH ×2 (07:43→20:05)
[2021-09-11] MEDS: predniSONE 5mg tablet PO SCH (07:44)
[2021-09-11] MEDS: lamoTRIgine 25mg tablet PO SCH (07:44)
[2021-09-11] MEDS: venlafaxine XR 75mg capsule (Q24H) PO SCH (07:44)
[2021-09-11] MEDS: clozapine 25mg tablet PO SCH ×2 (07:44→20:06)
[2021-09-11] MEDS: midodrine 5mg tablet PO SCH ×3 (07:44→17:05)
[2021-09-11] MEDS: nicotine 21mg patch - 24 hr TD SCH (07:45)
[2021-09-11 08:54] VITALS: BP 115/74
[2021-09-11] MEDS: LORazepam 1 MG tablet PO PRN (12:27)
--- NOTE | 2021-09-11 12:41 | NUR ---
PRNs Administered: Pt. was administered Ativan for anxiety AEB restlessness, wheezing, and wide eyed stare. Interventions Offered: This gag writer provided active listener and positive encouragement Response to Medication: Pt. thanked this gag writer for the medication and will continue to monitor closely for effectiveness.
--- NOTE | 2021-09-11 16:39 | NUR ---
Problem : Pt admitted to [place] for Behavioral health on a 5150 for gravely disabled from the Ortho floor, pt is confused and disoriented . He does not know where he is, what year it is and continues to state "Lucio loves you, Lucio is beautiful." He cannot articulate where he lives or a viable plan for food, clothing and assisted. Pt has history COPD, bipolar, Schizophrenia. Interventions : Received pt. again awake and sitting in the hallway at the beginning of the shift, he greeted this group underwriter animatedly. Pt. continues to require education regarding handwashing before attending meals r/t previous diagnosis of hepatitis A, and he reports understanding. He attended breakfast in the Group Room, and afterwards remained up interacting with others and playing [employer]ne[employer]. 1:1 was completed, and pt. continues to speak in a disorganized manner but is able to be redirected/ make his needs known. When questioned regarding A/V/HUGHES, pt. states, "I see friendly faces on the wall." Pt. again makes delusional statements throughout the shift, such as "Ignacio Lugo is still alive." He also continues to exhibit religiosity. Response : Pt. again remained up throughout the day and was observed to be interacting appropriately with others. He continues to require direction in order to complete ADLs at and positive encouragement. Pt. only presented with one episode of increased anxiety this shift and required PRN Ativan with effectiveness. Plan : Per BRYCE Rowe, pt. continues to require medication titration and a safe and supportive environment. He continues to be gravely disabled.
[2021-09-11 19:58] VITALS: BP 125/81
[2021-09-11] MEDS: traZODone 50mg tablet PO SCH (20:05)
[2021-09-11] MEDS: ipratropium/albuterol 3ml nebule NEB PRN (20:12)
--- NOTE | 2021-09-12 01:57 | NUR ---
NURSING PROGRESS NOTE Problem : Pt admitted to [place] for Behavioral health on a 5150 for gravely disabled from the Ortho floor, pt is confused and disoriented. He does not know where he is, what year it is and continues to state "Lucio loves you, Lucio is beautiful." He cannot articulate where he lives or a viable plan for food, clothing and care home. Pt has history COPD, bipolar, Schizophrenia. Interventions : Maintained a safe and supportive environment, ensured contract for safety, provided clear and simple instructions, attempted to orient to reality, monitored behaviors and provided redirection as needed, encouraged regarding handwashing, encouraged independent performance of ADLs and provided assistance as needed, maintained fall precautions.PT utilizes prn Ativan, because he is anxious and starting to wheeze. Response : Patient was sitting in the group room for 1:1. "Hi there, my good man" seems to be how he greets most people. Patient has had his hair cut, and it is not a good look. He talks about his guitar playing today, and is sad that the strings are broke. "They tried to fix it, but they kept breaking." The patient is calmer and less anxious than previous encounters. "The mirror in my room is like a fun-house mirror. It makes me look distorted." Patient laughed at himself. Before HS med pass patient starts wheezing, so respiratory was called and a breathing treatment was effective at making him breathe better. Plan : pt. continues to be GD and does not have a viable plan for discharge at this time. He continues to require a safe and supportive environment and medication adjustments.
[2021-09-12] MEDS: docusate sod 100mg capsule PO SCH ×2 (07:32→20:07)
[2021-09-12] MEDS: lamoTRIgine 25mg tablet PO SCH (07:32)
[2021-09-12] MEDS: predniSONE 5mg tablet PO SCH (07:32)
[2021-09-12] MEDS: venlafaxine XR 75mg capsule (Q24H) PO SCH (07:32)
[2021-09-12] MEDS: clozapine 25mg tablet PO SCH ×2 (07:32→20:06)
[2021-09-12] MEDS: nicotine 21mg patch - 24 hr TD SCH (07:32)
[2021-09-12] MEDS: midodrine 5mg tablet PO SCH ×3 (07:32→16:00)
[2021-09-12 08:00] VITALS: BP 121/76
[2021-09-12] MEDS ORDERED: tuberculin, purif. prot. deriv. 5 units/0.1ml ID ONE (08:25)
[2021-09-12] MEDS: ipratropium/albuterol 3ml nebule NEB PRN (08:41)
--- NOTE | 2021-09-12 10:06 | NUR ---
Pt. attended group today. Todays group was about the difference between Growth Mindset vs. Fixed Mindset. We learned about the differences and then discussed what aspect of developing a growth mindset they wanted to work on. Pt. engaged in the group well. His demeanor was calm, compliant and pleasant to work with. His thought content and thought process appeared a bit disorganized. His thought content may contain delusional content. He seemed to enjoy the socialization in the group setting. He shared in the group but would veer into loose associations. Nathaly Wiseman, SHANK INSPECTOR
--- NOTE | 2021-09-12 17:32 | NUR ---
RN Nursing Note: Altaf Catherine Problem : Pt admitted to [facility] for Behavioral health on a 5150 for gravely disabled from the Ortho floor, pt is confused and disoriented . He does not know where he is, what year it is and continues to state "Lucio loves you, Lucio is beautiful." He cannot articulate where he lives or a viable plan for food, clothing and correction. Pt has history COPD, bipolar, Schizophrenia. Interventions : Patient was awake at change of shift and in his room. Patient is very friendly to staff and peers. Patient does not appear to have insight to his situation. Patient had a elementary school social worker from [facility] evaluate patient for hours once he gets discharged. Patient does not have a d/c destination as of yet. Patient's best friend wants him to go to [facility] as his best friend lives there too. Response : Patient in the group room and social with peers. Patient did get a PPD on his left arm today for potential placement. Plan : Per BRYCE Rowe, pt. continues to require medication titration and a safe and supportive environment. He continues to be gravely disabled.
[2021-09-12] MEDS: traZODone 50mg tablet PO SCH (20:07)
[2021-09-12 20:35] VITALS: BP 115/69
--- NOTE | 2021-09-13 01:13 | NUR ---
NURSING PROGRESS NOTE: Problem : Pt admitted to [facility] for Behavioral health on a 5150 for gravely disabled from the Ortho floor, pt is confused and disoriented. He does not know where he is, what year it is and continues to state "Lucio loves you, Lucio is beautiful." He cannot articulate where he lives or a viable plan for food, clothing and [place] [facility]. Pt has history COPD, bipolar, Schizophrenia. Interventions : Maintained a safe and supportive environment, ensured contract for safety, provided clear and simple instructions, attempted to orient to reality, monitored behaviors and provided redirection as needed, encouraged handwashing r/t hx of hepatitis A, encouraged independent performance of ADLs and provided assistance as needed, maintained fall precautions. Response : Patient seen at bedside for assessment. "I got scared today." Asked what scared him. "The voices, they keep telling me I'm bad and I'm gonna get beat up. I don't fight, so they scare me." Patient re-oriented to reality that they are not real. "I know, but they still scare me." Reminded patient to wash hands often. "Oh yes, I wash them all the time now." When patient arrived on the unit, he was in poor physical health with unsteady gait. He has responded well to treatment aeb stronger gait and more independent with ADLs. He continues to be compliant with medications. Trazodone administered for good sleep hygiene. Plan : Pt. continues to be GD and does not have a viable plan for discharge at this time. He continues to require a safe and supportive environment and medication adjustments.
--- NOTE | 2021-09-13 07:41 | NUR ---
Reassessment: Currently on Regular/[facility] soft diet w/ mostly 100% intake of meals meeting est nutrient needs at this time. ONS was appropriately discontinued as pt is meeting needs through meals alone. Noted frequent wt discrepancy, previously going between 57kg and 75kg, now 60kg, unsure of accuracy. LBM 09/12 receiving routine colace. Will continue to monitor. Recs: 1. Continue Regular diet as tolerated 2. Bowel care PRN 3. Weekly wts Addendum: 09/13/21 at [address] Amended: Links added.
[2021-09-13] MEDS: nicotine 21mg patch - 24 hr TD SCH (07:58)
[2021-09-13] MEDS: venlafaxine XR 75mg capsule (Q24H) PO SCH (07:59)
[2021-09-13] MEDS: docusate sod 100mg capsule PO SCH ×2 (07:59→20:03)
[2021-09-13] MEDS: midodrine 5mg tablet PO SCH ×3 (07:59→16:55)
[2021-09-13] MEDS: predniSONE 5mg tablet PO SCH (07:59)
[2021-09-13] MEDS: lamoTRIgine 25mg tablet PO SCH (07:59)
[2021-09-13] MEDS: clozapine 25mg tablet PO SCH ×2 (07:59→20:03)
--- NOTE | 2021-09-13 08:55 | NUR ---
DCP Presenting Issues: Pt's on VOL status pending a safe dcp. [facility] had referred pt to Hollie Ar[facility]. Interventions: Clinician had t/c w/[facility] staff- Naya to f/u on referral for placement, per t/c, [facility] associate programmer is reviewing the packet and has been making calls to [facility] but no dispo yet. Plan: Clinician will continue to engage [facility] & [facility] in dcp activities. Talita Sanchez LCSW Addendum: 09/13/21 at 0856 by Talita SOLIS Amended: Links added.
--- NOTE | 2021-09-13 09:49 | NUR ---
Pt. attended both groups today. We first discussed putting together a Crisis Plan and each was given a sheet to do this with their supportive persons and resources written down. We then did an Art Expression activity where they had to identify what they wanted to hold onto in their life and let go of. They then did a visual representation with this. Pt. engaged well in both groups. His demeanor is consistently calm, compliant and pleasant to work with. He tends to talk to himself as others are talking which can be a bit distracting, when asked to stop talking while others are talking he was apologetic and amenable to redirection. He was able to stop his chatter for the rest of the group. His grasp of what is going on in the group or what the topic is about is limited. He follows along and attempt the activities but doesn't seem to completely understand what is happening. His thought content appears to contain some magical type thinking/delusional content. His thought process was a bit disorganized. He engaged well in the Art Expression and appears to enjoy creating art work. He appeared to grasp the concepts presented and appropriately shared the things he wanted to hold onto in the center [place], things such as his macrina and God. Outside of the [place] he cathy the ocean with shark in it and reported these are the things he wants to let go of. Ntahaly Wiseman LCSW
[2021-09-13 10:26] VITALS: BP 91/64
--- NOTE | 2021-09-13 15:03 | NUR ---
DCP/Placement Presenting Issues: Pt's a complicated d/c, as pt is currently unable to manage his ADLs w/o external prompting and support from a third alliance party. [facility]. Interventions: Clinician had t/c vandana/Reji/GABRIELE @ [facility] [phone] to f/u on referral, per t/c Reji will contact [facility] to coordinate an in-person interview w/pt to determine if pt is a good fit for [facility]. Plan: Clinician w/f/u with [facility] re pt's interview schedule w/[facility]. Talita Sanchez LCSW Addendum: 09/13/21 at 1516 by Talita Sanchez SS Amended: Links added.
--- NOTE | 2021-09-13 17:09 | NUR ---
RN Nursing Note: Altaf Catherine Problem : Pt admitted to [place] for Behavioral health on a 5150 for gravely disabled from the Ortho floor, pt is confused and disoriented . He does not know where he is, what year it is and continues to state "Lucio loves you, Lucio is beautiful." He cannot articulate where he lives or a viable plan for food, clothing and long term. Pt has history COPD, bipolar, Schizophrenia. Patient is gravely disabled. Interventions : Patient was re-oriented to place and time. Patient smiles and repeats. Patient has an interview for [facility] soon for possible placement. Response : Patient in the group room and social with peers. Patient is kind and social with staff and peers. Plan : Per BRYCE Rowe, pt. continues to require medication titration and a safe and supportive environment. He continues to be gravely disabled.
[2021-09-13 20:00] VITALS: BP 107/79
[2021-09-13] MEDS: traZODone 50mg tablet PO SCH (20:03)
--- NOTE | 2021-09-14 00:42 | NUR ---
NURSING PROGRESS NOTE: Problem : Pt admitted to [facility] for Behavioral health on a 5150 for gravely disabled from the Ortho floor, pt is confused and disoriented. He does not know where he is, what year it is and continues to state "Lucio loves you, Lucio is beautiful." He cannot articulate where he lives or a viable plan for food, clothing and assisted. Pt has history COPD, bipolar, Schizophrenia. Interventions : Maintained a safe and supportive environment, ensured contract for safety, provided clear and simple instructions, attempted to orient to reality, monitored behaviors and provided redirection as needed, encouraged handwashing r/t hx of hepatitis A, encouraged independent performance of ADLs and provided assistance as needed, maintained fall precautions. RESPONSE : Patient seen in the rec room. He has a favorite spot that he can usually be found. "How are my good man?" Asked him what he's thinking about while he sits there. "Oh, good things. I'm thinking about Leigh Saba." Asked what about her. "Oh, she's beautiful...Oh, and Jayne Espinoza too. Patient is upbeat and positive considering his state. He denies MH symptoms, but says he's still hearing voices that bother him. Patient is getting better at taking care of his ADLs, and physically he's walking more steadily and without assistance. Patient was provided Trazodone for sleep with positive results aeb sleeping all night. Plan : Pt. continues to be GD and does not have a viable plan for discharge at this time. He continues to require a safe and supportive environment and medication adjustments.
[2021-09-14] MEDS: ibuprofen tablet 400 MG TABLET PO PRN (06:00)
[2021-09-14 07:17] LABS: BASOPHILS % (AUTO) 0.4 % (0-1); EOSINOPHILS % (AUTO) 0.1 % (0-6); HEMOGLOBIN 12.3 g/dl (14.0-17.9); LYMPHOCYTES # (AUTO) 1.1 X10'3 (1.1-4.8); MEAN CORPUSCULAR HEMOGLOBIN 32.5 PG (27.0-31.0); MEAN CORPUSCULAR HGB CONC 33.3 g/dL (33.0-36.5); MEAN CORPUSCULAR VOLUME 97.7 FL (78-98); MEAN PLATELET VOLUME 8.3 FL (7.4-10.4); MONOCYTES # (AUTO) 0.6 X10'3 (0-0.9); MONOCYTES % (AUTO) 12.3 % (2-12); NEUTROPHILS # (AUTO) 3.5 X10'3 (1.8-7.7); NEUTROPHILS % (AUTO) 66.2 % (42-75); PLATELET COUNT 213 X10'3 (140-440); RED BLOOD COUNT 3.79 X10'6 (4.70-6.10); RED CELL DISTRIBUTION WIDTH 15.8 % (11.5-14.5); WHITE BLOOD COUNT 5.3 X10'3 (4.5-11.0)
[2021-09-14 08:00] VITALS: BP 98/65
[2021-09-14] MEDS: midodrine 5mg tablet PO SCH ×3 (08:08→16:09)
[2021-09-14] MEDS: lamoTRIgine 25mg tablet PO SCH (08:08)
[2021-09-14] MEDS: venlafaxine XR 75mg capsule (Q24H) PO SCH (08:08)
[2021-09-14] MEDS: clozapine 25mg tablet PO SCH ×2 (08:08→20:16)
[2021-09-14] MEDS: nicotine 21mg patch - 24 hr TD SCH (08:09)
[2021-09-14] MEDS: docusate sod 100mg capsule PO SCH ×2 (08:09→20:15)
[2021-09-14] MEDS: predniSONE 5mg tablet PO SCH (08:09)
--- NOTE | 2021-09-14 08:59 | NUR ---
Pt attended group today. We talked about Self Nurturing about how to curate spaces of nurture/self-care for themselves. We then did Vision board visualizing safe/nurture places and words. We read through a Personal Bill of Rights sheet, and they each discussed what rights they most identified with in order for them to develop their own bill of rights. Pt. engaged in the group appropriately though he does at times need to be redirected for talking when others are speaking. His demeanor is pleasant and he is amenable to redirection. He did not engage in writing down anything but was able to share that he enjoys music and nature. Nathaly Wiseman, DARELL
[2021-09-14] MEDS: ipratropium/albuterol 3ml nebule NEB PRN (11:56)
--- NOTE | 2021-09-14 13:46 | NUR ---
[facility] INTERVIEW Reji from [facility] called to request he come interview Altaf for [facility]. He reported he will meet with Altaf tomorrow at 10 AM. JAMES Delvalle
--- NOTE | 2021-09-14 17:12 | NUR ---
Nursing Note: Altaf Problem: Pt admitted to [place] for Behavioral health on a 5150 for gravely disabled from the Ortho floor. Pt has history COPD, bipolar, Schizophrenia. Pt. presents as disoriented and disorganized often unable to stay on topic AEB typewriter tester discussing future discharge plans and pt. states your beautiful, God loves you. Pt. c/o SOB with evidence accessory muscle use. Lab work shows deficient Hgb, RBC; provider notified. Interventions: Respiratory paged for PRN breathing treatment; effective. Pt. continues to be re oriented. Patient has pending interview with [facility] today re placement. Encouraged participation in group, and typewriter tester continues to provide pt. with a safe and therapeutic environment, clear communication, active listening and positive encouragement Response: Patient attended group, OOB and socializing with peers, and is friendly and compliant with staff. Plan: Per BRYCE Rowe, pt. continues to require medication titration and a safe and supportive environment. He continues to be gravely disabled.
--- NOTE | 2021-09-14 17:16 | NUR ---
PPD read with 0mm negative results Addendum: 09/14/21 at 1716 by Gwen Schafer RN Amended: Links added.
[2021-09-14 20:00] VITALS: BP 101/68
[2021-09-14] MEDS: traZODone 50mg tablet PO SCH (20:15)
--- NOTE | 2021-09-15 00:33 | NUR ---
Nursing Note: Altaf Problem: Pt admitted to [facility] for Behavioral health on a 5150 for gravely disabled from the Ortho floor. Pt has history COPD, bipolar, Schizophrenia. Pt. presents as disoriented and disorganized often unable to stay on topic AEB magazine writer discussing future discharge plans and pt. states your beautiful, God loves you. Pt. c/o SOB with evidence accessory muscle use. Lab work shows deficient Hgb, RBC; provider notified. Interventions: Pt in community room watching TV with peers while doing some artwork. Pt is pleasant and cooperative with this RN, stating that Lucio loves you and you look beautiful today. 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 After snacks pt requested breathing treatment and kept asking for his medications. Re-assured pt that he already took his HS medications. Provided pt. with a safe and therapeutic environment, clear communication, active listening and positive encouragement. Response: Patient in community room with peer doing artwork, socializing with peers, and is friendly and compliant with staff. Plan: Per BRYCE Rowe, pt. continues to require medication titration and a safe and supportive environment. He continues to be gravely disabled.
[2021-09-15] MEDS: LORazepam 1 MG tablet PO PRN ×2 (06:37→16:20)
[2021-09-15] MEDS: ipratropium/albuterol 3ml nebule NEB PRN (07:34)
[2021-09-15 08:00] VITALS: BP 102/70
[2021-09-15] MEDS: midodrine 5mg tablet PO SCH ×3 (08:13→16:17)
[2021-09-15] MEDS: docusate sod 100mg capsule PO SCH ×2 (08:13→20:40)
[2021-09-15] MEDS: lamoTRIgine 25mg tablet PO SCH (08:13)
[2021-09-15] MEDS: clozapine 25mg tablet PO SCH (08:13)
[2021-09-15] MEDS: venlafaxine XR 75mg capsule (Q24H) PO SCH (08:13)
[2021-09-15] MEDS: predniSONE 5mg tablet PO SCH (08:13)
[2021-09-15] MEDS: nicotine 21mg patch - 24 hr TD SCH (08:14)
--- NOTE | 2021-09-15 15:03 | NUR ---
Placement/DCP Presenting Issues: Pt's on Vol status pending interview dispo [facility] as pt is no longer able to care for self in an independent living situation and had requested to rt to a board & care situation. [facility] had referred pt to [facility] and Olivia/GABRIELE at [facility] [phone] had planned to interview pt today but interview did not occur. Interventions: Clinician had t/c [facility] and was informed that Olivia was out today therefore, no dispo re pt's referral yet. Plan: Clinician to follow-up [facility] tomorrow. Talita Sanchez LCSW Addendum: 09/15/21 at 1507 by Talita Sanchez SS Amended: Links added.
--- NOTE | 2021-09-15 17:10 | NUR ---
Nursing Progress Note: Altaf Problem: Pt admitted to [facility] for Behavioral health on a 5150 for gravely disabled from the Ortho floor. Pt has history COPD, bipolar, Schizophrenia. Pt. found to be SOB and c/o I feel nervous Pt. denies SI, HI but presents as delusional stating I and came back to life. During assessment pt. reports he was admitted d/t a song on the car radio. Second episode of hyperventilating/ SOB episode; PRN Ativan administered; effective. Interventions: PRN Ativan administered X2 for s/sx of anxiety and SOB, and Respiratory paged for PRN breathing treatment; effective. Patient completed interview with [facility] today re placement. Encouraged participation in group, and typewriter assembler continues to provide pt. with a safe and therapeutic environment, clear communication, active listening and positive encouragement. VS WNL O2 sats at 95%RA. Response: Patient attended group, pt. was able to independently complete ADLS, and is wearing street clothes with his hair in a ponytail. He is observed socializing with cohorts in the rec room, friendly and compliant with staff and medications. Decreased anxiety and hyperventilating/ SOB after Ativan administered. Plan: Per provider, pt. continues to require medication titration and a safe and supportive environment. He continues to be gravely disabled. . Q15 min checks for safety
[2021-09-15 19:37] VITALS: BP 101/63
[2021-09-15] MEDS: traZODone 50mg tablet PO SCH (20:40)
[2021-09-15] MEDS: clozapine 100mg tablet PO SCH (21:00)
--- NOTE | 2021-09-16 04:44 | NUR ---
Nursing Progress Note: Altaf Problem: Pt admitted to [place] for Behavioral health on a 5150 for gravely disabled from the Ortho floor. Pt has history COPD, bipolar, Schizophrenia. Pt. found to be SOB and c/o I feel nervous Pt. denies SI, HI but presents as delusional stating I and came back to life. During assessment pt. reports he was admitted d/t a song on the car radio. Second episode of hyperventilating/ SOB episode; PRN Ativan administered; effective. Interventions: Patient siting in community room at change of shift. Patient continues to be positive and playful. Patient repeatedly ask for different medications and made delusional statements about other patients and himself. At one point before snack patient actually began to becoming agitated and angry with another patient since she would not agree with what he was saying. Patient was able to be redirected to something else and calmed down. Patient took all medications without difficulty and went to bed. Response: Patient believes he is very wealthy and keep making flirtatious statements to staff. Patient became angary when another patient wouldn't complement his hair cut. Plan: Per provider, pt. continues to require medication titration and a safe and supportive environment. He continues to be gravely disabled. . Q15 min checks for safety
[2021-09-16] MEDS: LORazepam 1 MG tablet PO PRN (06:32)
[2021-09-16] MEDS: ipratropium/albuterol 3ml nebule NEB PRN (07:10)
[2021-09-16 07:59] VITALS: BP 106/71
[2021-09-16] MEDS: lamoTRIgine 25mg tablet PO SCH (08:01)
[2021-09-16] MEDS: midodrine 5mg tablet PO SCH ×3 (08:01→16:52)
[2021-09-16] MEDS: predniSONE 5mg tablet PO SCH (08:01)
[2021-09-16] MEDS: venlafaxine XR 75mg capsule (Q24H) PO SCH (08:01)
[2021-09-16] MEDS: docusate sod 100mg capsule PO SCH ×2 (08:01→20:13)
[2021-09-16] MEDS: clozapine 25mg tablet PO SCH (08:01)
[2021-09-16] MEDS: nicotine 21mg patch - 24 hr TD SCH (08:02)
--- NOTE | 2021-09-16 09:13 | NUR ---
Pt. presented with SOB, and pacing at 0630. Ativan PRN given and respiratory was paged for PRN Tx. When respiratory arrived pt. found to be respiratory stable RT reported no ausculatory changes found after PRN Tx administered, and concluded SOB episode may be r/t COPD Hx and anxiety.
--- NOTE | 2021-09-16 09:47 | NUR ---
[facility] INTERVIEW Received email from [facility] regarding Altaf's interview with [facility]: Reji and Naya attended the interview and expressed the following; Reji expressed some concerns that this client may have early on-set dementia. For example, Reji stated that Altaf did not recognize Reji or Naya when they arrived, despite residing in their facility for several years. Reji stated that client was rambling, can talk for a long while, but was very disorganized. Reji noted that while the client was able to listen and answer questions, he required the question to be repeated several times before being able to give an answer. Reji also mentioned that client was not oriented to the date and believed that Martín Lopez was running for a second term (not the first time hes answered this way lol). Reji stated that while clients mental health appeared to be doing well, client was having some anxiety and his communication and thought process was very concerning. [facility] recommends that this client see a neurologist to assess whether client may have early onset dementia in order to proceed with the application process to [facility]. Unfortunately, Reji will not be able to accept this client into the [facility] program if dementia is the case, and Reji and Naya (who works in an [employer]) have expressed that they think that might be a contributing factor. Is this something we can request to have set up? Spoke with [facility] staff, Sylvie, regarding request of neurology consult. Will endorse to Dr Bhardwaj. Asked if [facility] would be an option and they said they will talk to [facility]. Completed and faxed [facility] referral. JAMES Delvalle
--- NOTE | 2021-09-16 10:04 | NUR ---
[facility] REFERRAL Completed and sent [facility] referral to [facility]. JAMES Delvalle
--- NOTE | 2021-09-16 14:40 | NUR ---
William will interview Altaf on [place] for [facility]. JAMES Delvalle
[2021-09-16] MEDS: LORazepam 1 MG tablet PO SCH (16:59)
[2021-09-16] MEDS ORDERED: LORazepam 1 MG tablet PO ONE (17:00)
--- NOTE | 2021-09-16 17:29 | NUR ---
Nursing Progress Note: Altaf Problem: Pt admitted to [place] for Behavioral health on a 5150 for gravely disabled from the Ortho floor. Pt has history COPD, bipolar, Schizophrenia. Pt. found to be SOB and pacing excessively at 0620, and additional SOB and wheezing found this afternoon. Pt. presented as disorganized AEB his pants were on backwards, and disoriented AEB requesting to get off this show, but I do like boats Pt. requires prompting for self-care. Interventions: VS WNL O2 sats 95% RA, PRN Ativan administered X2 for s/sx of anxiety and SOB, and Respiratory paged for PRN breathing treatment this morning ; RT reported no auscultated symptoms found that pt. needed nor benefited from PRN Tx. Prompting and hands on care provided with ADLs. Encouraged participation in group, and program writer continues to provide pt. with a safe and therapeutic environment, clear communication, active listening and positive encouragement. Response: Patient attended group today. He is observed socializing with cohorts in the rec room, friendly and compliant with staff and medications. Decreased anxiety and hyperventilating/ SOB after Ativan administered. Plan: Per provider, pt. continues to require medication titration and a safe and supportive environment. He continues to be gravely disabled. . Q15 min checks for safety
[2021-09-16 20:00] VITALS: BP 120/63
[2021-09-16] MEDS: clozapine 100mg tablet PO SCH (20:13)
[2021-09-16] MEDS: traZODone 50mg tablet PO SCH (20:13)
[2021-09-17] MEDS: midodrine 5mg tablet PO SCH ×3 (07:22→17:17)
[2021-09-17] MEDS: LORazepam 1 MG tablet PO SCH ×2 (07:22→17:17)
[2021-09-17] MEDS: docusate sod 100mg capsule PO SCH ×2 (07:22→20:57)
[2021-09-17] MEDS: lamoTRIgine 25mg tablet PO SCH (07:22)
[2021-09-17] MEDS: predniSONE 5mg tablet PO SCH (07:22)
[2021-09-17] MEDS: nicotine 21mg patch - 24 hr TD SCH (07:22)
[2021-09-17] MEDS: venlafaxine XR 75mg capsule (Q24H) PO SCH (07:22)
[2021-09-17] MEDS ORDERED: clozapine 25mg tablet PO SCH (08:00)
[2021-09-17 08:33] VITALS: BP 91/62
--- NOTE | 2021-09-17 18:06 | NUR ---
Nursing Progress Note: P: Pt presents with poor hygiene. He remains SOB with wheezes. He is on medications to treat orthostatic pressure. Observed mumbling to self in the afternoon. I: Provided 1:1 assessment with therapeutic communication and active listening. Provided medication to decrease SOB. Encouraged pt to shower and change clothes. Provided task oriented activities to promote concentration and focus. Assisted pt in differentiating between internal/external reality. R: Ativan 1mg BID decreases pt's anxiety improving pts SOB. Pt colored and played guitar and socialized with peers. Pt accepted the headphones and walked in the halls for awhile. P: Per provider, pt. continues to require medication titration and a safe and supportive environment. He continues to be gravely disabled. .
[2021-09-17 20:00] VITALS: BP 111/65
[2021-09-17] MEDS: traZODone 50mg tablet PO SCH (20:56)
[2021-09-17] MEDS: clozapine 25mg tablet PO SCH (20:57)
[2021-09-17] MEDS: clozapine 100mg tablet PO SCH (20:57)
[2021-09-17] MEDS ORDERED: clozapine 100mg tablet PO SCH (21:00)
--- NOTE | 2021-09-18 02:37 | NUR ---
Nursing Progress Note: Problem :Patient GD, voluntary hold. Patient wanders hallways with SOB. Patient is very polite and likes to play the guitar. patient requires assistance with directions, pt gets side tracked and requires redirection. Patient had asked for a throat lozenge or Nicotine lozenge this shift, nut they have been discontinued. Interventions :Encourage patient to participate with other patients on the unit. Help patient with snack times and bed times. Provide patient medications to help with anxiety when required. Give the patient things to do that he enjoys, like play guitar. Response :Patient is receptive to being redirected and able to follow directions with help. The patient was receptive to not having lozenges. The patient took all evening meds w/o complications. Plan :Encourage the patient to complete ADL's. Provide a safe and calm environment for the patient. Encourage the patient to take meds prescribed per doctors orders.
[2021-09-18] MEDS: LORazepam 1 MG tablet PO SCH ×2 (06:12→16:55)
[2021-09-18] MEDS: midodrine 5mg tablet PO SCH ×3 (07:03→16:55)
[2021-09-18] MEDS: docusate sod 100mg capsule PO SCH ×2 (07:04→20:14)
[2021-09-18] MEDS: predniSONE 5mg tablet PO SCH (07:04)
[2021-09-18] MEDS: lamoTRIgine 25mg tablet PO SCH (07:04)
[2021-09-18] MEDS: venlafaxine XR 75mg capsule (Q24H) PO SCH (07:04)
[2021-09-18] MEDS: nicotine 21mg patch - 24 hr TD SCH (07:05)
[2021-09-18] MEDS: clozapine 25mg tablet PO SCH ×2 (07:27→20:13)
[2021-09-18 07:59] VITALS: BP 103/67
[2021-09-18] MEDS: ipratropium/albuterol 3ml nebule NEB PRN (08:25)
[2021-09-18] MEDS ORDERED: propranolol 10mg tablet PO ONE (13:10)
--- NOTE | 2021-09-18 14:39 | NUR ---
Nursing Progress Note: TAMAR P: Patient is waiting for placement as he is unable to return to [facility] until he has had a neurology consultation. Pt presents slightly disorganized, when asked where he was pt states something [facility]. Pt asked will you keep me safe. On several occasions during 1:1 pt pulled his blanket down exposing himself. Pt also presented SOB with wheezes. Observed pt responding to internal stimuli talking to self and inappropriate laughter. I: Reassured patient he was safe, reinforced the importance of appropriate speech and behaviors. Paged respiratory for PRN breathing treatments and administered scheduled medications as ordered. Provided distraction as pt wanted to play guitar. Reoriented pt to reality as needed. R: Pt was receptive to education on appropriate behavior, He did require some redirection during the day as he kept telling female peers youre beautiful and was not listening to their requests to stop. Pt was given headphones to help decrease internal stimuli, he didnt keep them on for long. P: Patient is unable to return to his [facility] at this time. Pt has an interview [facility] on Sunday. 09/20. SW is working on a safe DCP.
[2021-09-18 19:27] VITALS: BP 106/70
[2021-09-18] MEDS: clozapine 100mg tablet PO SCH (20:13)
[2021-09-18] MEDS: traZODone 50mg tablet PO SCH (20:14)
--- NOTE | 2021-09-18 22:40 | NUR ---
nicotine patch removed Addendum: 09/18/21 at 2240 by Tyler Kaur RN Amended: Links added.
--- NOTE | 2021-09-19 01:16 | NUR ---
Nursing Progress Note: Altaf Problem: Pt admitted to [facility] for Behavioral health on a 5150 for gravely disabled from the Ortho floor. Pt has history COPD, bipolar, Schizophrenia. Pt was in bed with eys closed at change of shift. He was later in group room coloring. Calm and pleasant, mumbles and difficult to understand at times. Makes comments about women are beautiful states you are beautiful Pt presents slightly disorganized. Pt unable to recall his birthday. Pt took medications without problems, when he was in bed and nicotine patch was removed, pt pulled covers down exposing himself. Pt then states he felt better now that youre here I: reinforced the importance of appropriate speech and behaviors. Pt otherwise pleasant, went to bed without any problems, no prns requested. No c/o sob. R: Pt was receptive to education on appropriate behavior. He was coloring in group room before going to bed. P: Patient is unable to return to his B&C at this time. Pt has an interview [facility] on Sunday. 09/20. SW is working on a safe DCP.
--- NOTE | 2021-09-19 07:00 | NUR ---
Reassessment: Currently on Regular/[facility] soft diet w/ mostly 100% intake of meals meeting est nutrient needs at this time. Noted frequent wt discrepancy, previously going between 57kg and 75kg, now 61kg, unsure of accuracy. [facility] 09/17 receiving routine colace. Will continue to monitor. Recs: 1. Continue Regular diet as tolerated 2. Bowel care PRN 3. Weekly wts Addendum: 09/19/21 at [address] Amended: Links added.
[2021-09-19] MEDS: clozapine 25mg tablet PO SCH ×3 (07:43→21:00)
[2021-09-19] MEDS: docusate sod 100mg capsule PO SCH ×2 (07:44→20:03)
[2021-09-19] MEDS: midodrine 5mg tablet PO SCH ×3 (07:44→16:25)
[2021-09-19] MEDS: venlafaxine XR 75mg capsule (Q24H) PO SCH (07:44)
[2021-09-19] MEDS: predniSONE 5mg tablet PO SCH (07:44)
[2021-09-19] MEDS: lamoTRIgine 25mg tablet PO SCH (07:44)
[2021-09-19] MEDS: LORazepam 1 MG tablet PO SCH ×2 (07:44→16:25)
[2021-09-19 08:00] VITALS: BP 150/62
[2021-09-19] MEDS: nicotine 21mg patch - 24 hr TD SCH (08:00)
[2021-09-19] MEDS: ipratropium/albuterol 3ml nebule NEB PRN (11:10)
--- NOTE | 2021-09-19 17:47 | NUR ---
Nursing Progress Note: Problem: Pt admitted to [place] for Behavioral health on a 5150 for gravely disabled from the Ortho floor. Pt has history COPD, bipolar, Schizophrenia. Pt. found to be SOB and pacing excessively at 0700, and additional SOB and wheezing found this afternoon. Pt. presented is tangential and d/o. When asked the date, pt. states, I am doing so well brother, how are you? Do you know I saw The [employer] play live? It was so good brother, Youre such a beautiful man. Interventions: VS WNL, O2 99%. Pt. given scheduled meds breathing treatment. Pt. given guitar to express himself through music. Response: Pt. responded well to scheduled medications and breathing tx AEB improvement in SOB. Pt. reports playing guitar felt good. Plan: Per provider, pt. continues to require medication titration and a safe and supportive environment. He continues to be gravely disabled. Q15 min checks for safety
[2021-09-19 20:00] VITALS: BP 111/69
[2021-09-19] MEDS: clozapine 100mg tablet PO SCH (20:03)
[2021-09-19] MEDS: traZODone 50mg tablet PO SCH (20:03)
[2021-09-19] MEDS: LORazepam 1 MG tablet PO PRN (21:35)
--- NOTE | 2021-09-20 02:50 | NUR ---
Nursing Progress Note: Problem : Patient GD, voluntary hold. Patient wanders hallways with SOB. Patient is very polite and likes to play the guitar. patient requires assistance with directions, pt gets side tracked and requires redirection. Patient had asked for a throat lozenge or Nicotine lozenge this shift, nut they have been discontinued. Interventions : Encourage patient to participate with other patients on the unit. Help patient with snack times and bed times. Provide patient medications to help with anxiety when required. Give the patient things to do that he enjoys, like play guitar. Response : Patient quiet and subdued tonight. He has taken color markers and wrote all over himself. Patient asked, "am I in a hospital? I said, yes. He said, "I thought so, you're such a beautiful man, Lucio loves you." Patient was provided snacks, and he was compliant with his HS meds. He has slept all night . Plan : Encourage the patient to complete ADL's. Provide a safe and calm environment for the patient. Encourage the patient to take meds prescribed per doctors orders.
[2021-09-20] MEDS: LORazepam 1 MG tablet PO SCH ×2 (07:22→16:41)
[2021-09-20] MEDS: predniSONE 5mg tablet PO SCH (07:24)
[2021-09-20] MEDS: midodrine 5mg tablet PO SCH ×3 (07:24→16:40)
[2021-09-20] MEDS: docusate sod 100mg capsule PO SCH ×2 (07:24→20:09)
[2021-09-20] MEDS: lamoTRIgine 25mg tablet PO SCH (07:25)
[2021-09-20] MEDS: venlafaxine XR 75mg capsule (Q24H) PO SCH (07:25)
[2021-09-20] MEDS: clozapine 25mg tablet PO SCH ×2 (07:25→20:09)
[2021-09-20 07:51] VITALS: BP 99/64
[2021-09-20] MEDS: nicotine 21mg patch - 24 hr TD SCH (08:00)
[2021-09-20] MEDS: albuterol 2.5 MG/3 ML nebule NEB SCH ×2 (08:07→20:24)
--- NOTE | 2021-09-20 11:26 | NUR ---
[facility] confirmed [facility] to interview pt @ 3:30 today. Clinician will complete 602 & preadmission survey if pt is offered admission to [facility]. Talita Sanchez MANAGER TALENT ACQUISITION Addendum: 09/20/21 at 1127 by Talita Sanchez SS Amended: Links added.
[2021-09-20 11:59] LABS: BASOPHILS % (AUTO) 0.4 % (0-1); EOSINOPHILS % (AUTO) 0 % (0-6); LYMPHOCYTES # (AUTO) 0.6 X10'3 (1.1-4.8); LYMPHOCYTES % (AUTO) 9.9 % (21-51); MEAN CORPUSCULAR HEMOGLOBIN 31.9 PG (27.0-31.0); MEAN CORPUSCULAR HGB CONC 32.6 g/dL (33.0-36.5); MEAN CORPUSCULAR VOLUME 97.9 FL (78-98); MEAN PLATELET VOLUME 7.7 FL (7.4-10.4); MONOCYTES # (AUTO) 0.4 X10'3 (0-0.9); MONOCYTES % (AUTO) 7.4 % (2-12); NEUTROPHILS # (AUTO) 4.6 X10'3 (1.8-7.7); NEUTROPHILS % (AUTO) 82.3 % (42-75); PLATELET COUNT 243 X10'3 (140-440); RED BLOOD COUNT 4.08 X10'6 (4.70-6.10); RED CELL DISTRIBUTION WIDTH 15.7 % (11.5-14.5); WHITE BLOOD COUNT 5.6 X10'3 (4.5-11.0)
[2021-09-20 12:14] LABS: ALANINE AMINOTRANSFERASE 20 U/L (12-78); ALBUMIN 3.5 G/DL (3.4-5.0); ALBUMIN/GLOBULIN RATIO 1.1 (1.1-1.5); ALKALINE PHOSPHATASE 85 IU/L (46-116); ANION GAP 6 (8-16); ASPARTATE AMINO TRANSFERASE 20 U/L (10-37); BILIRUBIN,TOTAL 0.3 MG/DL (0.1-1.0); BLOOD UREA NITROGEN 17 MG/DL (7-18); BUN/CREATININE RATIO 20.5 (5.4-32.0); CALCIUM 8.4 MG/DL (8.5-10.1); CHLORIDE 106 MMOL/L (99-107); CREATININE 0.83 MG/DL (0.60-1.10); GLUCOSE 155 MG/DL (70-104); POTASSIUM 4.5 MMOL/L (3.5-5.1); SODIUM 141 MMOL/L (135-145); TOTAL CARBON DIOXIDE 28.8 MMOL/L (24-32); TOTAL PROTEIN 6.6 G/DL (6.4-8.2); eGFR > 90 ML/MIN
--- NOTE | 2021-09-20 15:41 | NUR ---
ACCEPTED AT [facility] William accepted Altaf at [facility] Spoke to Richard who reported the can admit him on . Requested Dr chavez meds and send to [facility] for delivery. JAMES Delvalle
--- NOTE | 2021-09-20 15:47 | NUR ---
DAVID Barraza, Client Delivery Specialist with [facility] (ph# [phone]) called to report that she went to the address we have listed as Altaf's home address. (For some reason she thought he had discharged home). She reported no one was home and she could see in through the large window that the house was completely empty. She checked [employer] and found out the house was sold on August 23. JAMES Delvalle
--- NOTE | 2021-09-20 18:16 | NUR ---
NURSING PROGRESS NOTE: P: Pt admitted to [place] for Behavioral health on a 5150 for gravely disabled from the Ortho floor. Pt has history COPD, bipolar, Schizophrenia. At 0700 pt. presents with SOB. Pt. continues to present as d/o and tangential making nonsensical statements such as, Youre beautiful man, did you know that the erika is there? 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 Pt. is concerned about going to [facility], pt. states, Whos going to protect me? Will you go with me? Will you take me in a wheel chair? Interventions: VS WNL, O2 98%. Pt. given scheduled meds and PRN breathing treatment. Pt.s breathing Tx changed from PRN to scheduled. Pt. given reality reinforcement and reminded that hes in a safe environment. Pt. educated on [facility] and the support he will received there. Pt. given guitar to express himself through music. Response: Pt. responded well to scheduled medications and breathing tx AEB improvement in SOB. Pt. seen smiling while playing guitar with male peer. Pt. talking with staff and expresses relief by reality grounding. Plan: Per provider, pt. continues to require medication titration and a safe and supportive environment. He continues to be gravely disabled. Q15 min checks for safety
[2021-09-20] MEDS: traZODone 50mg tablet PO SCH (20:10)
[2021-09-20 20:47] VITALS: BP 108/67
--- NOTE | 2021-09-21 02:00 | NUR ---
Nursing Progress Note: Problem : Patient GD, voluntary hold. Patient wanders hallways with SOB. Patient is very polite and likes to play the guitar. patient requires assistance with directions, pt gets side tracked and requires redirection. Interventions : Encourage patient to participate with other patients on the unit. Help patient with snack times and bed times. Provide patient medications to help with anxiety when required. Give the patient things to do that he enjoys, like play guitar. Response : Patient continues to use color markers on his body and face, while he's coloring pictures. He seems happy. Patient responding well to Clozapine aeb: less distraction, more grounded, and decreasing response to IS. Plan : Encourage the patient to complete ADL's. Provide a safe and calm environment for the patient. Encourage the patient to take meds prescribed per doctors orders. DC to [facility].
[2021-09-21] MEDS: LORazepam 1 MG tablet PO SCH ×2 (06:47→16:52)
[2021-09-21 07:22] VITALS: BP 93/54
[2021-09-21] MEDS: albuterol 2.5 MG/3 ML nebule NEB SCH ×2 (07:39→20:12)
[2021-09-21] MEDS: nicotine 21mg patch - 24 hr TD SCH (08:00)
[2021-09-21] MEDS: docusate sod 100mg capsule PO SCH ×2 (08:05→20:02)
[2021-09-21] MEDS: clozapine 25mg tablet PO SCH ×2 (08:05→20:02)
[2021-09-21] MEDS: predniSONE 5mg tablet PO SCH (08:05)
[2021-09-21] MEDS: midodrine 5mg tablet PO SCH ×3 (08:06→16:52)
[2021-09-21] MEDS: venlafaxine XR 75mg capsule (Q24H) PO SCH (08:06)
[2021-09-21] MEDS: lamoTRIgine 25mg tablet PO SCH (08:06)
--- NOTE | 2021-09-21 08:41 | NUR ---
DCP Presenting Issues: Pt's accepted for admission @ [facility] they would like to admit him tomorrow. Interventions: Clinician consulted w/attending physician and obtained signature on Physician's Report (602), requested meds order to go to [facility]; 602, pre-assessment survey, COVID & PPD results sent to [facility] to facilitate transportation for pt upon d/c. Plan: Clinician will continue to engage [facility] in dcp activities. Pt to d/c tomorrow. Talita Sanchez LCSW Addendum: 09/21/21 at 0847 by Talita Sanchez SS Amended: Links added.
--- NOTE | 2021-09-21 11:50 | NUR ---
CM-Linkages Presenting Issues: A referral to [facility] was made in early August for pt to receive payee services, pt will transition to [facility] where he will receive support to access new living situation. Interventions: Clinician had f/u t/c with [facility], per t/c pt's been approved for payee services and [facility] will receive pt's disbursement from [facility]. [facility] notified. Plan: Clinician will continue to monitor and provide dcp support. Talita Sanchez LCSW Addendum: 09/21/21 at 1155 by Talita Sanchez SS Amended: Links added.
[2021-09-21] MEDS ORDERED: NICO-687 TD (13:48)
[2021-09-21] MEDS ORDERED: LAMO25TA5 PO (13:48)
[2021-09-21] MEDS ORDERED: TRAZ-251 PO (13:48)
[2021-09-21] MEDS ORDERED: VENL150T3 PO (13:48)
[2021-09-21] MEDS ORDERED: PRE5T PO (13:48)
[2021-09-21] MEDS ORDERED: CLOZ25TA12 PO (13:48)
[2021-09-21] MEDS ORDERED: MIDO5TAB4 PO (13:48)
[2021-09-21] MEDS ORDERED: ATI1T PO ×2 (13:48→13:51)
[2021-09-21] MEDS ORDERED: LORA-269 PO (13:51)
--- NOTE | 2021-09-21 13:53 | NUR ---
Pt. attended group today. The group today was about Anxiety, they were asked to identify the natural and silent triggers they have experienced. The second half of group was about what coping skills we can utilize when we are anxious. Pt. sits quietly in the group most of the time. There are times he will speak while another person is speaking under his breath but is amenable to redirection and will usually stop when asked to. He is always pleasant and likes to say encouraging things to people. He doesn't usually seem to totally track with the topic and will say things that are loosely related to what we are doing in the group. He is alert and oriented X 4. His thought content can observed to obtain delusional content and his thought process is a bit scattered. He reported that he is feeling tired today and did appear a bit lethargic. Nathaly Wiseman, PLATE SHEAR OPERATOR
[2021-09-21] MEDS ORDERED: UMEC1DIS PO (13:54)
--- NOTE | 2021-09-21 17:44 | NUR ---
NURSING PROGRESS NOTE: P: Pt admitted to [place] for Behavioral health on a 5150 for gravely disabled from the Ortho floor. Pt has history COPD, bipolar, Schizophrenia. Pt. continues at times to present as d/o and tangential making nonsensical statements but are less today. Pt. states, You are a beautiful man, do you like to sing? Pt. starts to sing loudly. Pt. reports being fearful of going to the [facility], asking, Will I be safe there? Interventions: VS WNL, O2 98%. Pt. given scheduled meds and PRN breathing treatment. Pt. given reality reinforcement and reminded that hes in a safe environment. Pt. educated on [facility] and the support he will received there. Pt. expressing himself through singing and playing guitar with peers. Response: Pt. responded well to scheduled medications and breathing tx AEB improvement in SOB. Pt. seen socializing with peers. Pt. talking with staff and expresses relief by reality grounding. Plan: Per provider, pt. continues to require medication titration and a safe and supportive environment. He continues to be gravely disabled. Q15 min checks for safety
[2021-09-21 19:16] VITALS: BP 109/67
[2021-09-21] MEDS: traZODone 50mg tablet PO SCH (20:02)
--- NOTE | 2021-09-21 21:01 | NUR ---
NURSING PROGRESS NOTE: P: Pt admitted to [place] for Behavioral health on a 5150 for gravely disabled from the Ortho floor. Pt has history COPD, bipolar, Schizophrenia. Interventions: VS WNL, O2 97%. Pt. given scheduled meds and PRN breathing treatment. Maintain therapeutic environment, active listening. Response: Pt sleeping at change of shift, knows he is going to [facility] tommorow. Pt asks if there are more people there and if its safe, assured pt of safe environment at [facility]. Pt seems to understand. Pt. responded well to scheduled medications and breathing tx AEB improvement in SOB. Pt. seen socializing with peers. Pt states his nicotine patch "fell off" as he was no longer wearing it. Plan: Per provider, pt. continues to require medication titration and a safe and supportive environment. He continues to be gravely disabled. Q15 min checks for safety
[2021-09-22] MEDS: midodrine 5mg tablet PO SCH ×2 (07:12→12:39)
[2021-09-22] MEDS: venlafaxine XR 75mg capsule (Q24H) PO SCH (07:12)
[2021-09-22] MEDS: docusate sod 100mg capsule PO SCH (07:12)
[2021-09-22] MEDS: lamoTRIgine 25mg tablet PO SCH (07:12)
[2021-09-22] MEDS: LORazepam 1 MG tablet PO SCH (07:12)
[2021-09-22] MEDS: clozapine 25mg tablet PO SCH (07:12)
[2021-09-22] MEDS: predniSONE 5mg tablet PO SCH (07:12)
[2021-09-22] MEDS: nicotine 21mg patch - 24 hr TD SCH (07:13)
[2021-09-22] MEDS: albuterol 2.5 MG/3 ML nebule NEB SCH (07:18)
[2021-09-22 07:41] VITALS: BP 118/80
--- NOTE | 2021-09-22 13:20 | NUR ---
Discharge Note: Pt. was discharged off the unit accompanied by Conner, to cat driver who is transporting him to [facility]. Belongings were inventoried by Tech and returned to pt., and pt. picked up his belongings stored in the safe from security on his way out of the building. This copy writer reviewed pt's medications and discharge instructions with him and he reported understanding. Pt. was sent with his home medications and prescribed medications. He was also provided with smoking cessation patches.
[2021-09-23] MEDS ORDERED: ALBU18HF2 INH (08:57)
[2021-09-23] MEDS ORDERED: ATRIN INH (08:57)
== END 2021-09-22 13:20 | DRG 885 ==
LOC: ADULT MH 13:25
PROVIDERS: ADMIT Psychiatry & Neurology Psychiatry; ATTEND Psychiatry & Neurology Psychiatry
DX: F20.9 Schizophrenia, unspecified (principal); B15.9 Hepatitis A without hepatic coma; R64 Cachexia; Z68.1 Body mass index [BMI] 19.9 or less, adult; Z20.822 Contact with and (suspected) exposure to COVID-19; F41.9 Anxiety disorder, unspecified; I10 Essential (primary) hypertension; I95.1 Orthostatic hypotension; F17.200 Nicotine dependence, unspecified, uncomplicated; D64.9 Anemia, unspecified; J44.9 Chronic obstructive pulmonary disease, unspecified; F32.9 Major depressive disorder, single episode, unspecified; Z81.8 Family history of other mental and behavioral disorders; Z88.8 Allergy status to other drugs, medicaments and biological substances; Z79.899 Other long term (current) drug therapy; Z59.00 Homelessness unspecified
CPT/HCPCS: 36415; 74018; 80053; 82607; 84443; 85025; 86703; 86705; 86706; 86709; 86803; 87081; 93005; 94640; 94760; J2060; J3490; J7512

== ENCOUNTER 2021-09-28 08:52 | Emergency (ER) | payer MEDICARE, MEDICAID ==
[~2021-09-28] VITALS: Ht 182.9 cm; Wt 63.6 kg
[~2021-09-28 08:52] MED LIST changes: +ALBU18HF2 INH; +ATRIN INH; +CLOZ25TA12 PO; +LAMO25TA5 PO; -LAMO25TA94 PO; -OLAN5TAB29 PO; +PRE5T PO; -PRED20TA PO; +TRAZ-251 PO; -VENL150C58 PO; +VENL150T3 PO; -ZOSYN 3.373.375 GM/5 IV
[2021-09-28] MEDS ORDERED: ipratropium/albuterol 3ml nebule NEB STA (11:46)
[2021-09-28] MEDS ORDERED: predniSONE 20 mg tablet PO ONE (11:50)
[2021-09-28 12:00] VITALS: BP 110/76
[2021-09-28] MEDS ORDERED: ipratropium/albuterol 3ml nebule NEB ONE (12:10)
[2021-09-28] MEDS ORDERED: ipratropium/albuterol 3ml nebule ONE (12:15)
[2021-09-28] MEDS ORDERED: ALB0.5UD IH (13:29)
[2021-09-28] MEDS ORDERED: ATR0.5NEB NEB ×3 (13:29→13:34)
[2021-09-28] MEDS ORDERED: PRED20TA PO ×2 (13:29→16:48)
[2021-09-28] MEDS ORDERED: NEBU1KIT3 MC ×2 (13:34→16:48)
[2021-09-28] MEDS ORDERED: ATRIN IH (16:48)
[2021-09-28] MEDS ORDERED: ALBU2.5V13 NEB (16:48)
[2021-09-28] MEDS ORDERED: ALBU18HF2 INH (16:48)
== END 2021-09-28 14:00 | disposition home or self-care (01) ==
LOC: ER 08:53
DX: J44.9 Chronic obstructive pulmonary disease, unspecified (principal); R07.89 Other chest pain; R10.84 Generalized abdominal pain; F31.9 Bipolar disorder, unspecified; F20.9 Schizophrenia, unspecified; Z72.89 Other problems related to lifestyle; Z88.8 Allergy status to other drugs, medicaments and biological substances; Z79.899 Other long term (current) drug therapy
CPT/HCPCS: 71045; 94640; 99285; J7512; 94760

== ENCOUNTER 2021-12-15 08:44 | Emergency (ER) | payer MEDICARE, MEDICAID ==
[~2021-12-15] VITALS: Ht 185.4 cm; Wt 63.6 kg
[~2021-12-15 08:44] MED LIST changes: +ALBU2.5V13 NEB; +ATR0.5NEB NEB; +ATRIN IH; +NEBU1KIT3 MC
[2021-12-15 09:47] VITALS: BP 105/71
[2021-12-15] MEDS ORDERED: PRED20TA PO (10:13)
== END 2021-12-15 11:13 | disposition home or self-care (01) ==
LOC: ER 08:45
DX: F17.220 Nicotine dependence, chewing tobacco, uncomplicated (principal); J44.1 Chronic obstructive pulmonary disease with (acute) exacerbation; F20.9 Schizophrenia, unspecified; F31.9 Bipolar disorder, unspecified; Z88.6 Allergy status to analgesic agent; Z88.8 Allergy status to other drugs, medicaments and biological substances
CPT/HCPCS: 71046; 99283